=== PATIENT | male | born 1955 | race Caucasian/White ===

== ENCOUNTER 2020-06-02 14:13 | Inpatient (IN) ==
[2020-06-02] MEDS ORDERED: NS 1000 ML 1,000 ML ONE (15:43)
[2020-06-02] MEDS ORDERED: MORPHINE SULFATE INJ 2 MG INJ ONE (15:43)
[2020-06-02 16:31] LABS: BASOPHILS % (AUTO) 0.4 % (0.2-1.0); EOSINOPHILS % (AUTO) 0.3 % (0.9-2.9); HEMATOCRIT 32.9 % (42.0-54.0); HEMOGLOBIN 10.3 g/dL (13.5-18.0); LYMPHOCYTES # (AUTO) 1.2 X10^3/uL (1.3-2.9); LYMPHOCYTES % (AUTO) 26.1 % (21.0-51.0); MEAN CORPUSCULAR HEMOGLOBIN 23.9 pg (27.0-34.0); MEAN CORPUSCULAR HGB CONC 31.5 g/dL (33.0-35.0); MEAN PLATELET VOLUME 8.3 fL (7.4-11.0); MONOCYTES # (AUTO) 0.8 x10^3/uL (0.3-0.8); MONOCYTES % (AUTO) 16.3 % (0.0-13.0); NEUTROPHILS # (AUTO) 2.7 x10^3/uL (2.2-4.8); NEUTROPHILS % (AUTO) 56.9 % (42.0-75.0); PLATELET COUNT 184 X10^3/uL (150.0-450.0); RED BLOOD COUNT 4.32 X10^6/uL (4.7-6.0); RED CELL DISTRIBUTION WIDTH 20.9 % (11.6-16.5); WHITE BLOOD COUNT 4.8 X10^3/uL (3.6-10.0)
[2020-06-02 17:12] LABS: PLATELET MORPHOLOGY COMMENT NORMAL (NORMAL)
[2020-06-02 17:13] LABS: ANISOCYTOSIS 1+; HYPOCHROMASIA 1+
[2020-06-02 18:00] LABS: ALANINE AMINOTRANSFERASE 22 Units/L (12-78); ALBUMIN 3.7 g/dL (3.4-5.0); ALKALINE PHOSPHATASE 80 Units/L (46-116); ASPARTATE AMINO TRANSFERASE 24 Units/L (15-37); BLOOD UREA NITROGEN 14 mg/dL (7-18); CALCIUM 8.7 mg/dL (8.5-10.1); CARBON DIOXIDE 25.4 mmol/L (21-32); CHLORIDE 99 mmol/L (98-107); CREATININE 0.73 mg/dL (0.70-1.30); SODIUM 138 mmol/L (136-145); TOTAL PROTEIN 8.3 g/dL (6.4-8.2); eGFR NON BLACK RACES > 60 (>60)
[2020-06-02 18:18] VITALS: BMI 26.4
[2020-06-02] MEDS ORDERED: NORCO 7.5/325 MG TAB ONE (18:38)
[2020-06-02] MEDS: NORCO 7.5/325 MG TAB PO PRN (18:43)
--- NOTE | 2020-06-02 18:52 | DR.H&P ---
H&P - History & Physical for Day of: H&P Date: 06/02/20 - Chief Complaint Chief Complaint: Nausea/Vomiting/Diarrhea - History of Present Illness History of Present Illness: This is a 65-year-old white male who is a direct admit from [facility]. Pt complains of vomiting and diarrhea since Sunday. states patient had a fever of 103 last night. Temperature in office 100.8. States he is unable to hold down any of his medications because he vomits them up back up. Reports some abdominal discomfort. Reports increased back and leg pain. In office patient noted to have gone to the bathroom several times with bile smelling stools. Patient dry heaving and some vomiting in office. Pt does have history of multiple intra-abdominal surgeries as well as hospitalizations due to recurrent SBO secondary to adhesions. - Past Medical History Past Medical History: Anemia, Angina, Arthritis, Coronary Artery Disease, Diabetes, Dyslipidemia, GERD, Hypertension, PUD - Past Surgical History Surgical History: Abdominal Surgery, Angioplasty/Stents, Bowel Resection, CABG/Valve Surgery, Cholecystectomy, Other Additional Surgical History: Hiatal hernia repair - Family History Family Medical History: Coronary Artery Disease, Hypertension - Social History Does patient currently use any type of tobacco product: No Have you used tobacco products in the last 12 months: No Type of Tobacco Use: Cigarettes How many years tobacco product used: 3 Does any household member use tobacco: No Alcohol Use: None Drug Use: None, Prescription Drugs Prescription drug monitoring program results: PDMP reviewed and no concerns identified - Medications Home Medications: iodine Allergy (Verified 06/02/20 15:37) CONTINUE taking the following medications aspirin 81 mg PO DAILY 06/02/20 [History] atorvastatin 80 mg PO DAILY 06/02/20 [History] carvedilol 25 mg PO BID 06/02/20 [History] clopidogrel 75 mg PO DAILY 06/02/20 [History] docusate sodium [DOK] 100 mg PO BID 06/02/20 [History] famotidine 20 mg PO BID 06/02/20 [History] hydrocodone-acetaminophen 1 tab PO Q8H PRN 06/02/20 [History] linaclotide [Linzess] 290 mcg PO DAILY 06/02/20 [History] lisinopril 40 mg PO DAILY 06/02/20 [History] melatonin 5 mg PO HS 06/02/20 [History] mupirocin 2 % TOPICAL TID 06/02/20 [History] nifedipine 60 mg PO DAILY 06/02/20 [History] nitroglycerin 0.4 mg SUBLINGUAL Q5M PRN 06/02/20 [History] ondansetron 4 mg PO Q8H PRN 06/02/20 [History] pantoprazole 40 mg PO BID 06/02/20 [History] polyethylene glycol 3350 [Miralax] 17 g PO HS 06/02/20 [History] promethazine 25 mg PO Q6H PRN 06/02/20 [History] quetiapine 100 mg PO QHS 06/02/20 [History] ranolazine 500 mg PO BID 06/02/20 [History] ropinirole 1 mg PO HS 06/02/20 [History] spironolactone 25 mg PO DAILY 06/02/20 [History] sucralfate 1 g PO ACHS 06/02/20 [History] tamsulosin 0.4 mg PO HS 06/02/20 [History] tizanidine 4 - 8 mg PO Q8H PRN 06/02/20 [History] - Review of Systems Constitutional: Weakness Eyes: No Symptoms Reported ENT: No Symptoms Reported Respiratory: No Symptoms Reported Cardiovascular: Light Headedness Gastrointestinal: Nausea, Vomiting, Abdominal Pain, Diarrhea Genitourinary: No Symptoms Reported Musculoskeletal: Back Pain, Leg Pain Skin: No Symptoms Reported Neurological: Weakness - Physical Exam Vital Signs: Temperature 101.7 F Pulse Rate [Left Radial] 99 Respiratory Rate 18 Blood Pressure [Left Arm] 125/95 O2 Sat by Pulse Oximetry 98 Oriented: Normal Eyes: Normal Ear: Normal Nose: Normal Throat: Normal Respiratory: Clear Throughout Cardiovascular: Murmur : Normal Auscultation: Bowel Sounds: Decreased Palpation: Normal Tenderness: Epigastric Skin: Other (Dusky appearance) Musculoskeletal: Back:Lumbar (tender with palpation) Psychiatric: Normal Mood Description: Calm Affect: Flat Speech Pattern: Clear - Assessment/Plan (1) Vomiting and diarrhea Status: Acute Plan: Imaging, Labs, Anti-emtics. Observe for Bowel Obstruction (2) Abdominal pain Qualifiers: Abdominal location: generalized Qualified Code(s): R10.84 - Generalized abdominal pain Narrative Support Text: History of numerous bowel obstructions and surgeries Status: Acute Plan: Imaging, labs (3) Fever Status: Acute - Allergies Allergies/Adverse Reactions: Allergies Allergy/AdvReac Type Severity Reaction Status Date / Time iodine Allergy Verified 06/02/20 15:37
--- NOTE | 2020-06-02 20:22 | CT ---
HISTORYPT C/O N/VSTUDYABDOMEN/PELVIS W/O CONCOMPARISONNoneTECHNIQUEMultiple axial images of the abdomen and pelvis were obtained from the lung bases to the pubic symphysis without the administration of IV contrast. Dose reduction techniques including Automated Exposure Control (AEC) and adjustment of mA and kV were utilized.FINDINGSThere are hazy ground-glass opacities scattered along the lung bases which is more prominent on the right. There is a small hiatal hernia. The liver and spleen are normal size and density. The gallbladder has been removed with clips in the gallbladder fossa. There are surgical clips scattered along the epigastric region and left upper quadrant. The bile ducts and pancreas are normal. The adrenals are normal. There is perirenal stranding around both kidneys with no hydronephrosis, renal stone, or mass. There is an IVC filter in place with the tip below the renal veins. The ureters are normal caliber. The bladder is unremarkable. The prostate gland is mildly enlarged. There are mesenteric calcifications along the left upper quadrant. There are multiple loops of mild to moderately dilated large and small bowel throughout abdomen with moderate air-fluid levels throughout seen down to the rectum. There is no obvious wall thickening. The appendix is not well visualized with no pericecal inflammation. The bones are intact.IMPRESSIONProbable diffuse moderate ileus or less likely a distal colonic obstruction. Recommend clinical follow-up.Extensive postop changes along the upper abdomen and mesentery calcifications along the left upper quadrant.Status post cholecystectomy and IVC filter in good position.Perirenal scarring around both kidneys with no hydronephrosis or urinary obstruction.Hazy ground-glass opacities along the lung bases which could represent early infiltrates from pneumonia. Recommend correlating with chest x-rays.Small hiatal herniaElectronically signed by: ANDRIA RUIZ (Jun 02, 2020 20:21:43)
[2020-06-02] MEDS ORDERED: ZOFRAN INJ 4 MG VIAL ONE (21:10)
--- NOTE | 2020-06-02 21:13 | DR.UPDATE ---
H&P Update History and Physical Update: History and Physical reviewed and patient examined. Changes noted: NO Yes with the following:will place central line for iv access H&P Reviewed: Yes Patient was examined?: Yes Procedures (ALL) - Central Line Placement PCM.CLCO: written consent Time out performed: Yes Patient placed pm monitor/pulse ox: Yes prep: mask, gown, gloves, other Centrial line prep: chlorhexidine scrub, sterile drapes applied Local anesthsia used: lidocane 1% Ultrasound used for placement: Yes (right ij id'd) Central line lumen ininserted: triple Post procedure: sutured in place, good blood return, all ports aspirated, flushed,capped, sterile dressing applied Post procedure xray: tip oc catheter in good position, no pneumothorax seen Patient tolerated procedure: Yes Complications: none
--- NOTE | 2020-06-02 21:14 | RAD ---
HISTORYCENTRAL LINE PLACEMENTSTUDYCHEST, 1 VIEWCOMPARISONNoneFINDINGSThe heart is borderline enlarged. The pulmonary vessels are slightly ill-defined centrally. Lungs are hyperinflated and emphysematous. There is a right IJ catheter in place with the tip in the distal superior vena cava. No effusion or pneumothorax is seen.IMPRESSIONStatus post right IJ catheter placement in good position.Minimal central pulmonary congestion or pulmonary artery hypertension.Chronic obstructive lung changes with no acute pulmonary abnormality.Electronically signed by: ANDRIA RUIZ (Jun 02, 2020 21:12:34)
[2020-06-02] MEDS: MORPHINE SULFATE INJ 2 MG INJ IVP PRN (21:25)
[2020-06-02] MEDS: NS 1000 ML 1,000 ML IV SCH ×2 (21:25→22:37)
[2020-06-02] MEDS: ZOFRAN INJ 4 MG VIAL IVP PRN (21:26)
[2020-06-02] MEDS: DILAUDID INJ IVP PRN (23:43)
[2020-06-03] MEDS: MORPHINE SULFATE INJ 2 MG INJ IVP PRN (03:29)
[2020-06-03] MEDS: ZOFRAN INJ 4 MG VIAL IVP PRN ×2 (05:56→19:30)
[2020-06-03] MEDS: DILAUDID INJ IVP PRN ×2 (06:05→17:23)
[2020-06-03] MEDS: NS 1000 ML 1,000 ML IV SCH ×2 (06:15→21:09)
[2020-06-03] MEDS ORDERED: DILAUDID INJ IVP STA (09:02)
[2020-06-03] MEDS: OFIRMEV IV 1000 MG VIAL 1,000 MG/100 ML VIAL IV PRN ×2 (09:15→21:07)
[2020-06-03 09:26] LABS: BASOPHILS % (AUTO) 0.4 % (0.2-1.0); HEMOGLOBIN 10.1 g/dL (13.5-18.0); LYMPHOCYTES # (AUTO) 1.2 X10^3/uL (1.3-2.9); LYMPHOCYTES % (AUTO) 25.4 % (21.0-51.0); MEAN CORPUSCULAR HEMOGLOBIN 24.1 pg (27.0-34.0); MEAN CORPUSCULAR HGB CONC 31.7 g/dL (33.0-35.0); MEAN CORPUSCULAR VOLUME 76.1 fL (80.0-100.0); MEAN PLATELET VOLUME 8.2 fL (7.4-11.0); MONOCYTES # (AUTO) 0.6 x10^3/uL (0.3-0.8); MONOCYTES % (AUTO) 12.5 % (0.0-13.0); NEUTROPHILS # (AUTO) 2.9 x10^3/uL (2.2-4.8); NEUTROPHILS % (AUTO) 61.7 % (42.0-75.0); PLATELET COUNT 173 X10^3/uL (150.0-450.0); RED BLOOD COUNT 4.21 X10^6/uL (4.7-6.0); RED CELL DISTRIBUTION WIDTH 21.1 % (11.6-16.5); WHITE BLOOD COUNT 4.6 X10^3/uL (3.6-10.0)
[2020-06-03 09:40] LABS: LACTIC ACID 0.9 mmol/L (0.4-2.0)
[2020-06-03 09:45] LABS: ALANINE AMINOTRANSFERASE 18 Units/L (12-78); ALBUMIN 3.3 g/dL (3.4-5.0); ALKALINE PHOSPHATASE 71 Units/L (46-116); ASPARTATE AMINO TRANSFERASE 25 Units/L (15-37); BLOOD UREA NITROGEN 11 mg/dL (7-18); CALCIUM 8.5 mg/dL (8.5-10.1); CARBON DIOXIDE 22.7 mmol/L (21-32); CHLORIDE 103 mmol/L (98-107); COR CA(FOR HYPOALB) 9.1 mg/dL (8.5-10.1); CREATININE 0.68 mg/dL (0.70-1.30); SODIUM 138 mmol/L (136-145); TOTAL PROTEIN 7.3 g/dL (6.4-8.2); eGFR NON BLACK RACES > 60 (>60)
[2020-06-03 09:49] LABS: PLATELET MORPHOLOGY COMMENT NORMAL (NORMAL)
[2020-06-03 09:50] LABS: ANISOCYTOSIS 1+
--- NOTE | 2020-06-03 10:04 | RAD ---
HISTORYABD DISTENTION, N/V HIATAL HERNIA, BOWEL OBSTRUCTIONSTUDYKUBCOMPARISONCT of the abdomen and pelvis done June 02, 2020FINDINGSThere is mild dilatation of multiple loops of small with patchy colonic stool noted. No gas is seen within the rectum.IMPRESSIONProbable ileus given colonic stool versus early obstruction. Continued radiographic follow-up is needed.Electronically signed by: CORKY ANDERSEN (Jun 03, 2020 10:02:12)
[2020-06-03] MEDS: ZOSYN VIAL 3.375 GRAMS 3.375 G in NS 100 ML IV + SPIKE MINIBAG* 100 ML IV SCH ×2 (10:37→21:10)
[2020-06-03 11:06] LABS: BILIRUBIN,URINE NEGATIVE (NEGATIVE); BLOOD/HEMOGLOBIN,URINE NEGATIVE (NEGATIVE); GLUCOSE, URINE NEGATIVE (NEGATIVE); KETONES,URINE 2+ (NEGATIVE); LEUKOCYTE ESTERASE ,URINE NEGATIVE (NEGATIVE); NITRITES,URINE NEGATIVE (NEGATIVE); PROTEIN,URINE 1+ (NEGATIVE); UROBILINOGEN,URINE NORMAL (NORMAL)
[2020-06-03 11:31] LABS: APPEARANCE,URINE CLEAR (CLEAR); COLOR,URINE YELLOW (YELLOW)
[2020-06-03 11:32] LABS: BACTERIA,URINE NEGATIVE /HPF (NEGATIVE); RBC,URINE NONE SEEN /HPF (0-3); SQUAMOUS EPITHELIAL CELL,UR RARE /HPF (NEGATIVE)
--- NOTE | 2020-06-03 11:57 | RAD ---
HISTORYSOBSTUDYCHEST, 1 MYLULTVNRISOVO38/21/2020FINDINGSThe heart is normal. The pulmonary vessels are normal. The lungs are mildly hyperinflated and emphysematous. There are postop changes along the mediastinum and sternum. There is a right IJ catheter in place which is unchanged.IMPRESSIONStable chronic changes with no acute abnormality seen.Electronically signed by: ANDRIA RUIZ (Jun 03, 2020 11:56:09)
[2020-06-03] MEDS: LOVENOX INJ 40 MG SYR SC SCH (12:00)
[2020-06-03] MEDS: ZITHROMAX INJ 500 MG VIAL 500 MG in NS 250 ML IV 250 ML IV SCH (12:00)
[2020-06-03 12:20] LABS: ABG BASE EXCESS -3.2 mmol/L (-2.0-2.0); ABG HCO3 21.2 mmol/L (22-26)
[2020-06-03] MEDS: DUONEB 0.5 MG/3 MG (3 mL) NEB SCH ×3 (12:20→21:07)
[2020-06-03 12:21] LABS: ABG ALLEN TEST POS
[2020-06-03] MEDS: ZESTRIL TAB 40 MG PO SCH (15:00)
[2020-06-03] MEDS ORDERED: APRESOLINE INJ 20 MG VIAL IVP ONE (20:40)
[2020-06-03] MEDS ORDERED: APRESOLINE INJ 20 MG VIAL ONE (20:46)
[2020-06-03] MEDS: RANEXA PO SCH (21:10)
[2020-06-03] MEDS: FLOMAX PO SCH (21:10)
[2020-06-03] MEDS: COREG TAB 25 MG PO SCH (21:10)
[2020-06-03] MEDS: PHENERGAN INJ 25 MG IM PRN (23:24)
[2020-06-04] MEDS: DUONEB 0.5 MG/3 MG (3 mL) NEB SCH ×6 (01:20→21:55)
[2020-06-04] MEDS: DILAUDID INJ IVP PRN ×5 (01:53→21:43)
[2020-06-04] MEDS ORDERED: ZOSYN VIAL 3.375 GRAMS IV ONE (05:50)
[2020-06-04] MEDS ORDERED: NS 100 ML IV + SPIKE MINIBAG* 100 ML IV ONE (05:57)
[2020-06-04] MEDS: ZOSYN VIAL 3.375 GRAMS 3.375 G in NS 100 ML IV + SPIKE MINIBAG* 100 ML IV SCH ×3 (06:00→21:23)
[2020-06-04 06:01] LABS: ALANINE AMINOTRANSFERASE 17 Units/L (12-78); ALBUMIN 2.9 g/dL (3.4-5.0); ALKALINE PHOSPHATASE 63 Units/L (46-116); ASPARTATE AMINO TRANSFERASE 19 Units/L (15-37); BLOOD UREA NITROGEN 7 mg/dL (7-18); CALCIUM 8.2 mg/dL (8.5-10.1); CARBON DIOXIDE 23.1 mmol/L (21-32); CHLORIDE 104 mmol/L (98-107); COR CA(FOR HYPOALB) 9.1 mg/dL (8.5-10.1); CREATININE 0.68 mg/dL (0.70-1.30); SODIUM 140 mmol/L (136-145); TOTAL PROTEIN 6.8 g/dL (6.4-8.2); eGFR NON BLACK RACES > 60 (>60)
[2020-06-04 06:04] LABS: BASOPHILS % (AUTO) 0.2 % (0.2-1.0); HEMATOCRIT 31.1 % (42.0-54.0); LYMPHOCYTES # (AUTO) 1.2 X10^3/uL (1.3-2.9); LYMPHOCYTES % (AUTO) 32.5 % (21.0-51.0); MEAN CORPUSCULAR HEMOGLOBIN 24.1 pg (27.0-34.0); MEAN CORPUSCULAR VOLUME 75.3 fL (80.0-100.0); MEAN PLATELET VOLUME 7.9 fL (7.4-11.0); MONOCYTES # (AUTO) 0.3 x10^3/uL (0.3-0.8); MONOCYTES % (AUTO) 8.3 % (0.0-13.0); NEUTROPHILS # (AUTO) 2.2 x10^3/uL (2.2-4.8); PLATELET COUNT 164 X10^3/uL (150.0-450.0); RED BLOOD COUNT 4.13 X10^6/uL (4.7-6.0); RED CELL DISTRIBUTION WIDTH 21.1 % (11.6-16.5); WHITE BLOOD COUNT 3.8 X10^3/uL (3.6-10.0)
[2020-06-04 06:41] LABS: ANISOCYTOSIS 1+; HYPOCHROMASIA SLIGHT; PLATELET MORPHOLOGY COMMENT NORMAL (NORMAL)
[2020-06-04] MEDS: LIPITOR TAB 40 MG PO SCH ×2 (08:39→08:52)
[2020-06-04] MEDS: ZESTRIL TAB 40 MG PO SCH ×3 (08:40→12:03)
[2020-06-04] MEDS: LOVENOX INJ 40 MG SYR SC SCH (08:40)
[2020-06-04] MEDS: COREG TAB 25 MG PO SCH ×4 (08:41→21:29)
[2020-06-04] MEDS: RANEXA PO SCH ×2 (08:52→21:29)
[2020-06-04] MEDS: ZITHROMAX INJ 500 MG VIAL 500 MG in NS 250 ML IV 250 ML IV SCH (08:53)
[2020-06-04] MEDS ORDERED: REMDESIVIR 200 MG in NS 250 ML IV 250 ML IV SCH (11:00)
[2020-06-04] MEDS: OFIRMEV IV 1000 MG VIAL 1,000 MG/100 ML VIAL IV PRN (12:00)
[2020-06-04] MEDS ORDERED: TORADOL 15 MG VIAL IM ONE (13:03)
[2020-06-04] MEDS ORDERED: TORADOL 15 MG VIAL ONE (13:05)
[2020-06-04] MEDS ORDERED: REMDESIVIR IV ONE (14:29)
[2020-06-04] MEDS ORDERED: NS 250 ML IV 250 ML IV ONE (14:32)
--- NOTE | 2020-06-04 14:56 | RAD ---
HISTORYCOVID PT WITH ABD DISTENTIONSTUDYKUBCOMPARISONNoneTECHNIQUETwo images supine KUBFINDINGSLung bases demonstrate pulmonar y opacities of covid 19. Cardiomegaly. Diffusely gas-filled dilated bowel. IVC filter noted. No free air identified. Surgical clips in the left upper and right upper quadrants. Multiple scattered abdomi nal calcifications are nonspecific. No pneumatosis or portal venous gas.IMPRESSIONDilated gas-filled bowel suspicious for ileus.Electronically signed by: Rodrigo Acuña (Jun 04, 2020 14:55:10)
[2020-06-04] MEDS: NS 1000 ML 1,000 ML IV SCH ×3 (15:00→22:48)
[2020-06-04] MEDS: FLOMAX PO SCH (21:29)
[2020-06-05] MEDS: DUONEB 0.5 MG/3 MG (3 mL) NEB SCH ×6 (01:30→21:30)
[2020-06-05] MEDS: DILAUDID INJ IVP PRN ×3 (01:39→09:39)
[2020-06-05] MEDS: OFIRMEV IV 1000 MG VIAL 1,000 MG/100 ML VIAL IV PRN ×2 (01:45→09:30)
[2020-06-05 05:24] LABS: BASOPHILS % (AUTO) 0.2 % (0.2-1.0); HEMATOCRIT 27.2 % (42.0-54.0); HEMOGLOBIN 8.7 g/dL (13.5-18.0); LYMPHOCYTES # (AUTO) 0.7 X10^3/uL (1.3-2.9); LYMPHOCYTES % (AUTO) 25.5 % (21.0-51.0); MEAN CORPUSCULAR HEMOGLOBIN 24.3 pg (27.0-34.0); MEAN CORPUSCULAR VOLUME 76.1 fL (80.0-100.0); MEAN PLATELET VOLUME 8.6 fL (7.4-11.0); MONOCYTES # (AUTO) 0.2 x10^3/uL (0.3-0.8); MONOCYTES % (AUTO) 8.2 % (0.0-13.0); NEUTROPHILS # (AUTO) 1.8 x10^3/uL (2.2-4.8); NEUTROPHILS % (AUTO) 66.1 % (42.0-75.0); PLATELET COUNT 145 X10^3/uL (150.0-450.0); RED BLOOD COUNT 3.57 X10^6/uL (4.7-6.0); RED CELL DISTRIBUTION WIDTH 20.6 % (11.6-16.5); WHITE BLOOD COUNT 2.7 X10^3/uL (3.6-10.0)
[2020-06-05 05:33] LABS: ANISOCYTOSIS 1+; HYPOCHROMASIA SLIGHT; OVALOCYTES PRESENT; PLATELET MORPHOLOGY COMMENT NORMAL (NORMAL)
[2020-06-05 05:38] LABS: ALANINE AMINOTRANSFERASE 14 Units/L (12-78); ALBUMIN 2.6 g/dL (3.4-5.0); ALKALINE PHOSPHATASE 57 Units/L (46-116); ASPARTATE AMINO TRANSFERASE 21 Units/L (15-37); BLOOD UREA NITROGEN 13 mg/dL (7-18); CALCIUM 7.9 mg/dL (8.5-10.1); CARBON DIOXIDE 22.3 mmol/L (21-32); CHLORIDE 106 mmol/L (98-107); CREATININE 0.72 mg/dL (0.70-1.30); SODIUM 141 mmol/L (136-145); TOTAL PROTEIN 6.6 g/dL (6.4-8.2); eGFR NON BLACK RACES > 60 (>60)
[2020-06-05] MEDS: NS 1000 ML 1,000 ML IV SCH ×2 (05:59→20:54)
[2020-06-05] MEDS: ZOSYN VIAL 3.375 GRAMS 3.375 G in NS 100 ML IV + SPIKE MINIBAG* 100 ML IV SCH ×3 (06:00→21:10)
--- NOTE | 2020-06-05 06:15 | RAD ---
HISTORYCough,covidSTUDYPortable AP [id number]/22/2020FINDINGSStable heart size with right IJ line and sternal wires. There is no change in the grossly clear left lung. There is suggestion of developing interstitial infiltrate in the right lung. No segmental or lobar consolidation or pleural fluid seen.IMPRESSIONSuspect appearance for developing interstitial infiltrate/pneumonia in the right lower lung. Continued follow-up suggested.Electronically signed by: MAXX CHAVEZ (Jun 05, 2020 06:13:57)
[2020-06-05] MEDS: REMDESIVIR 100 MG in NS 250 ML IV 250 ML IV SCH (09:17)
[2020-06-05] MEDS: ZITHROMAX INJ 500 MG VIAL 500 MG in NS 250 ML IV 250 ML IV SCH (09:17)
[2020-06-05] MEDS: LOVENOX INJ 40 MG SYR SC SCH (09:18)
[2020-06-05] MEDS: LIPITOR TAB 40 MG PO SCH ×2 (09:19→21:15)
[2020-06-05] MEDS: ZESTRIL TAB 40 MG PO SCH (09:19)
[2020-06-05] MEDS: COREG TAB 25 MG PO SCH ×2 (09:19→20:54)
[2020-06-05] MEDS: RANEXA PO SCH ×2 (09:31→21:15)
--- NOTE | 2020-06-05 10:36 | DR.PROGNOT ---
Hospital Progress Notes - Progress Note for Day of: Progress Note Date: 06/05/20 - Chief Complaint Chief Complaint: c/o back pain . having episodes of dry heaves and coughs . only mild abdominal pain . ( had small BM and passing flatus ). abdominal xray showe ileus pattern . chest Xray possible pneumonia RLL - Past Medical Family Social History Past Med/Fam/Surg Hx: No changes since H&P Allergies: Allergies iodine Allergy (Verified 06/02/20 15:37) - Review Of Systems ROS: No change since H&P - Vital Signs Vital Signs: Temperature 100.4 F Pulse Rate [Left Radial] 81 Pulse Rate 85 Respiratory Rate 30 Blood Pressure [Left Arm] 177/83 Blood Pressure 124/58 O2 Sat by Pulse Oximetry 91 - Physical Exam Oriented: Normal, Other (anxious and restless ) Eyes: Normal Ear: Normal Nose: Normal Throat: Normal Cardiovascular: Murmur : Normal GI:Auscultation: Decreased GI:Palpation: Normal GI: Tenderness: Epigastric (mild diffuse tenderness , soft abdomen.) Skin: Other (Dusky appearance) Musculoskeletal: Back:Lumbar (tender with palpation) Psychiatric: Normal Mood Description: Calm Affect: Flat Speech Pattern: Clear, Appropriate - Laboratory and Diagnostics Result Diagrams: 06/05/20 04:28 06/05/20 04:28 Labs: 06/03/20 10:30 Urine,Clean Catch Urine Culture - Final 06/03/20 09:07 Blood Blood Culture - Preliminary 06/03/20 08:50 Blood Blood Culture - Preliminary 06/02/20 17:10 Blood Blood Culture - Preliminary 06/02/20 16:09 Blood Blood Culture - Preliminary Laboratory WBC 2.7 X10^3/uL (3.6-10.0) L 06/05/20 04:28 RBC 3.57 X10^6/uL (4.7-6.0) L 06/05/20 04:28 Hgb 8.7 g/dL (13.5-18.0) L 06/05/20 04:28 Hct 27.2 % (42.0-54.0) L 06/05/20 04:28 MCV 76.1 fL (80.0-100.0) L 06/05/20 04:28 MCH 24.3 pg (27.0-34.0) L 06/05/20 04:28 MCHC 32.0 g/dL (33.0-35.0) L 06/05/20 04: RDW 20.6 % (11.6-16.5) H 06/05/20 04: Plt Count 145 X10^3/uL (150.0-450.0) L 06/05/20 04:28 Plt Count Comment Adequate (ADEQUATE) 06/05/20 04: MPV 8.6 fL (7.4-11.0) 06/05/20 04: Neut % (Auto) 66.1 % (42.0-75.0) 06/05/20 04: Lymph % (Auto) 25.5 % (21.0-51.0) 06/05/20 04: [place] % (Auto) 8.2 % (0.0-13.0) 06/05/20 04: Eos % (Auto) 0.0 % (0.9-2.9) L 06/05/20 04: Baso % (Auto) 0.2 % (0.2-1.0) 06/05/20 04: Neut # (Auto) 1.8 x10^3/uL (2.2-4.8) L 06/05/20 04:28 Lymph # (Auto) 0.7 X10^3/uL (1.3-2.9) L 06/05/20 04:28 [place] # (Auto) 0.2 x10^3/uL (0.3-0.8) L 06/05/20 04:28 Eos # (Auto) 0.0 x10^3/uL (0.0-0.2) 06/05/20 04:28 Baso # (Auto) 0.0 X10^3/uL (0.0-0.1) 06/05/20 04:28 Absolute Nucleated RBC 0.1 /100WBC 06/05/20 04:28 Plt Morphology Comment Normal (NORMAL) 06/05/20 04:28 RBC Morphology Abnormal (NORMAL) 06/05/20 04:28 Hypochromasia Slight A 06/05/20 04:28 Anisocytosis 1+ A 06/05/20 04:28 Ovalocytes Present 06/05/20 04:28 ESR 38 MM/HOUR (0-15) H 06/03/20 08:50 Sample Site Rr 06/03/20 12:15 ABG pH 7.390 (7.35-7.45) 06/03/20 12:15 ABG pCO2 35.0 mmHg (35.0-45.0) 06/03/20 12:15 ABG pO2 81.0 mmHg (80.0-100.0) 06/03/20 12:15 ABG HCO3 21.2 mmol/L (22-26) L 06/03/20 12:15 ABG O2 Saturation 96.0 % (90-100) 06/03/20 12:15 ABG Base Excess -3.2 mmol/L (-2.0-2.0) L 06/03/20 12:15 Jason Test Pos 06/03/20 12:15 A-a Gradient 25.0 mmHg 06/03/20 12:15 FiO2 21.0 06/03/20 12:15 Blood Gas Comments Xiomara well gmb 06/03/20 12:15 Sodium 141 mmol/L (136-145) 06/05/20 04:28 Corrected Sodium TNP 06/05/20 04:28 Potassium 3.6 mmol/L (3.5-5.1) 06/05/20 04:28 Chloride 106 mmol/L (98-107) 06/05/20 04:28 Carbon Dioxide 22.3 mmol/L (21-32) 06/05/20 04:28 BUN 13 mg/dL (7-18) 06/05/20 04:28 Creatinine 0.72 mg/dL (0.70-1.30) 06/05/20 04:28 Est GFR (MDRD) Af Amer > 60 (>60) 06/05/20 04:28 Est GFR (MDRD) Non-Af > 60 (>60) 06/05/20 04:28 Glucose 79 mg/dL (65-99) 06/05/20 04:28 Lactic Acid 0.9 mmol/L (0.4-2.0) 06/03/20 08:50 Calcium 7.9 mg/dL (8.5-10.1) L 06/05/20 04:28 Corrected Calcium 9.0 mg/dL (8.5-10.1) 06/05/20 04:28 Ferritin 80 ng/mL (26-388) 06/03/20 08:50 Total Bilirubin 0.40 mg/dL (0.2-1.0) 06/05/20 04:28 AST 21 Units/L (15-37) 06/05/20 04:28 ALT 14 Units/L (12-78) 06/05/20 04:28 Alkaline Phosphatase 57 Units/L (46-116) 06/05/20 04:28 C-Reactive Protein 76.30 mg/L (0-3.0) H 06/04/20 04:55 Total Protein 6.6 g/dL (6.4-8.2) 06/05/20 04:28 Albumin 2.6 g/dL (3.4-5.0) L 06/05/20 04:28 Globulin 4.0 g/dL (2.5-4.5) 06/05/20 04:28 Albumin/Globulin Ratio 0.7 Ratio (1.1-2.1) L 06/05/20 04:28 Specimen Type Clean catch urine 06/03/20 10:30 Urine Color Yellow (YELLOW) 06/03/20 10:30 Urine Appearance Clear (CLEAR) 06/03/20 10:30 Urine pH 5.0 (5.0 - 8.0) 06/03/20 10:30 Ur Specific [place] 1.025 (1.000-1.030) 06/03/20 10:30 Urine Protein 1+ (NEGATIVE) 06/03/20 10:30 Urine Glucose (UA) Negative (NEGATIVE) 06/03/20 10:30 Urine Ketones 2+ (NEGATIVE) 06/03/20 10:30 Urine Occult Blood Negative (NEGATIVE) 06/03/20 10:30 Urine Nitrite Negative (NEGATIVE) 06/03/20 10:30 Urine Bilirubin Negative (NEGATIVE) 06/03/20 10:30 Urine Urobilinogen Normal (NORMAL) 06/03/20 10:30 Ur Leukocyte Esterase Negative (NEGATIVE) 06/03/20 10:30 Urine RBC None seen /HPF (0-3) 06/03/20 10:30 Urine WBC None seen /HPF (0-5) 06/03/20 10:30 Ur Squamous Epith Cells Rare /HPF (NEGATIVE) 06/03/20 10:30 Urine Bacteria Negative /HPF (NEGATIVE) 06/03/20 10:30 Ur Culture Indicated? No/not indicated 06/03/20 10:30 SARS-CoV-2 (PCR) Positive (NEGATIVE) A 06/03/20 09:20 - Assessment and Plan 1: Covid 19 pneumonia . improving ileus ,. back pain . same plan and advance diet . - Problem Patient Problems: Patient Problems Vomiting and diarrhea (Acute) R11.10, R19.7 Abdominal pain (Acute) R10.9 Fever (Acute) R50.9
[2020-06-05] MEDS ORDERED: DILAUDID INJ IVP PRN (10:55)
[2020-06-05] MEDS: ATIVAN INJ 2 MG VIAL IVP PRN ×2 (11:00→21:10)
[2020-06-05] MEDS ORDERED: ATIVAN INJ 2 MG VIAL IVP PRN (11:00)
[2020-06-05] MEDS: FLOMAX PO SCH (21:12)
[2020-06-06] MEDS: DUONEB 0.5 MG/3 MG (3 mL) NEB SCH ×6 (01:19→20:40)
[2020-06-06] MEDS: NS 1000 ML 1,000 ML IV SCH ×2 (03:00→18:20)
[2020-06-06] MEDS: ATIVAN INJ 2 MG VIAL IVP PRN ×2 (04:49→13:50)
[2020-06-06] MEDS: ZOSYN VIAL 3.375 GRAMS 3.375 G in NS 100 ML IV + SPIKE MINIBAG* 100 ML IV SCH ×3 (05:00→21:40)
[2020-06-06 05:22] LABS: BASOPHILS % (AUTO) 0.1 % (0.2-1.0); EOSINOPHILS % (AUTO) 0.1 % (0.9-2.9); HEMATOCRIT 29.8 % (42.0-54.0); HEMOGLOBIN 9.4 g/dL (13.5-18.0); LYMPHOCYTES # (AUTO) 1.2 X10^3/uL (1.3-2.9); LYMPHOCYTES % (AUTO) 32.4 % (21.0-51.0); MEAN CORPUSCULAR HGB CONC 31.5 g/dL (33.0-35.0); MEAN PLATELET VOLUME 8.5 fL (7.4-11.0); MONOCYTES # (AUTO) 0.3 x10^3/uL (0.3-0.8); MONOCYTES % (AUTO) 8.6 % (0.0-13.0); NEUTROPHILS # (AUTO) 2.2 x10^3/uL (2.2-4.8); NEUTROPHILS % (AUTO) 58.8 % (42.0-75.0); PLATELET COUNT 177 X10^3/uL (150.0-450.0); RED BLOOD COUNT 3.92 X10^6/uL (4.7-6.0); RED CELL DISTRIBUTION WIDTH 20.9 % (11.6-16.5); WHITE BLOOD COUNT 3.7 X10^3/uL (3.6-10.0)
[2020-06-06 05:35] LABS: ANISOCYTOSIS 1+; HYPOCHROMASIA SLIGHT; PLATELET MORPHOLOGY COMMENT NORMAL (NORMAL)
[2020-06-06 05:36] LABS: OVALOCYTES PRESENT
[2020-06-06 05:38] LABS: ALANINE AMINOTRANSFERASE 15 Units/L (12-78); ALBUMIN 2.6 g/dL (3.4-5.0); ALKALINE PHOSPHATASE 59 Units/L (46-116); ASPARTATE AMINO TRANSFERASE 30 Units/L (15-37); BLOOD UREA NITROGEN 15 mg/dL (7-18); CALCIUM 8.3 mg/dL (8.5-10.1); CARBON DIOXIDE 23.1 mmol/L (21-32); CHLORIDE 108 mmol/L (98-107); COR CA(FOR HYPOALB) 9.4 mg/dL (8.5-10.1); CREATININE 0.75 mg/dL (0.70-1.30); SODIUM 143 mmol/L (136-145); eGFR NON BLACK RACES > 60 (>60)
--- NOTE | 2020-06-06 07:15 | RAD ---
HISTORYCoughSTUDYAP [id number]/24/2020FINDINGSCardiomegaly with sternal wires. No change in position of right jugu lar line. The left lung is hyperexpanded and grossly clear. There is increasing confluent airspace de nsity in the right lower lung. No pneumothorax or associated pleural fluid is seen.IMPRESSIONStable c ardiac enlargement. Increasing infiltrate/pneumonia right upper and lower lobes.Electronically signed by: MAXX CHAVEZ (Jun 06, 2020 07:13:19)
[2020-06-06] MEDS: ZESTRIL TAB 40 MG PO SCH (08:29)
[2020-06-06] MEDS: LOVENOX INJ 40 MG SYR SC SCH (08:29)
[2020-06-06] MEDS: RANEXA PO SCH ×2 (08:30→21:40)
[2020-06-06] MEDS: REMDESIVIR 100 MG in NS 250 ML IV 250 ML IV SCH (08:30)
[2020-06-06] MEDS: ZITHROMAX INJ 500 MG VIAL 500 MG in NS 250 ML IV 250 ML IV SCH (08:31)
[2020-06-06] MEDS: COREG TAB 25 MG PO SCH ×2 (08:43→21:40)
[2020-06-06] MEDS: PHENERGAN INJ 25 MG IM PRN (10:05)
--- NOTE | 2020-06-06 14:01 | CT ---
HISTORYS/P FALL. PAIN TO RIGHT PERIORBITALSTUDYBRAIN W/O CONCOMPARISONNone.TECHNIQUEMultiple axial images of the head were performed from the skullbase to the vertex using standard departmental protocol. Sagittal and coronal reformatted images were performed. Dose reduction techniques including Automated Exposure Control (AEC) and adjustment of mA and kV were utilized.FINDINGSMotion limited study. The lateral ventricles and basilar cisterns appear patent. No parenchymal mass or hematoma. No extra-axial collection. Mchugh-white differentiation appears acutely preserved. Mild low-attenuation change in the supratentorial subcortical and deep white matter. Small left maxillary sinus retention cyst.IMPRESSIONNo acute intracranial abnormality. Mild chronic small vessel disease. Motion limited study.Electronically signed by: Rodrigo Acuña (Jun 06, 2020 14:00:16)
--- NOTE | 2020-06-06 14:03 | CT ---
HISTORYS/P FALL. PAIN TO RIGHT PERIORBITALSTUDYFACIAL W/O CONCOMPARISONNone.TECHNIQUEMultiple axial images of the facial structures were obtained from the mandible to superior portions of the orbits. Sagital and Coronal reformats were created. Dose reduction techniques including Automated Exposure Control (AEC) and adjustment of mA and kV were utilized.FINDINGSFacial bones: No acute facial bone fracture.Paranasal sinuses:Small left maxillary sinus retention cyst. Mild mucosal thickening in the ethmoid air cells.Globes:Intact. No retrobulbar swelling or hematoma.Soft tissues:Small right periorbital contusion.Motion limited study.IMPRESSIONNo acute facial bone fracture.Electronically signed by: Rodrigo Acuña (Jun 06, 2020 14:02:02)
--- NOTE | 2020-06-06 15:09 | RAD ---
HISTORYCENTRAL LINE PLACEMENTSTUDYCHEST, 1 VIEWCOMPARISONSame day chest radiographTECHNIQUEAP view of the chestFINDINGSRight IJ central line in good position. Post median sternotomy and CABG. Cardiac silhouette is stably enlarged. No significant change in bilateral lung airspace disease. No pleural effusion or pneumothorax.IMPRESSIONCentral line in good position.Electronically signed by: Rodrigo Acuña (Jun 06, 2020 15:07:53)
--- NOTE | 2020-06-06 15:10 | DR.UPDATE ---
H&P Update History and Physical Update: History and Physical reviewed and patient examined. Changes noted: NO Yes with the following:will replace central line secondary to patient pulling original line out. H&P Reviewed: Yes Patient was examined?: Yes Procedures (ALL) - Central Line Placement PCM.CLCO: written consent Time out performed: Yes Patient placed pm monitor/pulse ox: Yes MD prep: mask, gown, gloves, other Centrial line prep: chlorhexidine scrub, sterile drapes applied Local anesthsia used: lidocane 1% Ultrasound used for placement: Yes (right IJ easily id'd. direct u/s vis of R IJ cannulation.) Central line lumen ininserted: triple Post procedure: sutured in place, good blood return, all ports aspirated, flushed,capped, sterile dressing applied Post procedure xray: tip oc catheter in good position, no pneumothorax seen Patient tolerated procedure: Yes Complications: none
[2020-06-06] MEDS: DILAUDID INJ IVP PRN ×2 (15:16→23:30)
[2020-06-06] MEDS ORDERED: HALDOL INJ ONE (20:13)
[2020-06-06] MEDS ORDERED: RESTORIL CAP 15 MG PO ONE (20:17)
[2020-06-06] MEDS ORDERED: HALDOL INJ IVP ONE (20:22)
[2020-06-06] MEDS ORDERED: HALDOL INJ IM PRN (20:23)
--- NOTE | 2020-06-06 21:33 | RAD ---
HISTORYFALL, RIGHT SIDE PAIN HX: HTN, PNEUMONIA, DM SX: ABD, STENTS, BOWEL RESECTION, CABG, GBSTUDYRIB SERIESCOMPARISONChest x-ray dated same day at 2:50 p.m.FINDINGSThe trachea is midline. The cardiac silhouette is stably enlarged without overt signs of failure. Stable appearance of a right IJ central venous catheter. Postsurgical changes status post CABG. Patchy airspace disease appears unchanged given technique. No obvious pleural effusion. The bony thorax is unremarkable.No acute cortical disruption or angulation of the bony [right] hemithorax can be identified. No underlying pneumothorax is seen.IMPRESSION1. No significant change in lung aeration.2. No evidence for acute rib fracture can be identified.Electronically signed by: ANDRIA ESTRELLA (Jun 06, 2020 21:31:36)
[2020-06-06] MEDS: LIPITOR TAB 40 MG PO SCH (21:40)
[2020-06-06] MEDS: RESTORIL CAP 15 MG PO PRN (21:40)
[2020-06-06] MEDS: FLOMAX PO SCH (21:40)
[2020-06-07] MEDS: DUONEB 0.5 MG/3 MG (3 mL) NEB SCH ×6 (00:15→21:34)
[2020-06-07] MEDS: HALDOL INJ IVP PRN ×3 (00:38→21:11)
[2020-06-07 04:24] LABS: ABG ALLEN TEST POS; ABG HCO3 21.8 mmol/L (22-26)
[2020-06-07 04:56] LABS: FRACTIONATED INSPIRED OXYGEN 21
[2020-06-07 05:29] LABS: BASOPHILS % (AUTO) 0.1 % (0.2-1.0); HEMATOCRIT 27.5 % (42.0-54.0); LYMPHOCYTES # (AUTO) 1.1 X10^3/uL (1.3-2.9); LYMPHOCYTES % (AUTO) 20.8 % (21.0-51.0); MEAN CORPUSCULAR HEMOGLOBIN 24.6 pg (27.0-34.0); MEAN CORPUSCULAR HGB CONC 32.8 g/dL (33.0-35.0); MEAN CORPUSCULAR VOLUME 75.1 fL (80.0-100.0); MEAN PLATELET VOLUME 8.6 fL (7.4-11.0); MONOCYTES # (AUTO) 0.5 x10^3/uL (0.3-0.8); MONOCYTES % (AUTO) 9.1 % (0.0-13.0); NEUTROPHILS # (AUTO) 3.7 x10^3/uL (2.2-4.8); PLATELET COUNT 170 X10^3/uL (150.0-450.0); RED BLOOD COUNT 3.66 X10^6/uL (4.7-6.0); RED CELL DISTRIBUTION WIDTH 21.2 % (11.6-16.5); WHITE BLOOD COUNT 5.3 X10^3/uL (3.6-10.0)
[2020-06-07] MEDS: ZOSYN VIAL 3.375 GRAMS 3.375 G in NS 100 ML IV + SPIKE MINIBAG* 100 ML IV SCH ×3 (05:30→21:10)
[2020-06-07] MEDS: DILAUDID INJ IVP PRN ×4 (05:30→21:59)
[2020-06-07 05:53] LABS: ANISOCYTOSIS 1+; HYPOCHROMASIA 1+; PLATELET MORPHOLOGY COMMENT NORMAL (NORMAL)
[2020-06-07 05:55] LABS: ALANINE AMINOTRANSFERASE 12 Units/L (12-78); ALBUMIN 2.4 g/dL (3.4-5.0); ALKALINE PHOSPHATASE 58 Units/L (46-116); ASPARTATE AMINO TRANSFERASE 25 Units/L (15-37); BLOOD UREA NITROGEN 11 mg/dL (7-18); CALCIUM 8.1 mg/dL (8.5-10.1); CARBON DIOXIDE 24.1 mmol/L (21-32); CHLORIDE 109 mmol/L (98-107); COR CA(FOR HYPOALB) 9.4 mg/dL (8.5-10.1); CREATININE 0.68 mg/dL (0.70-1.30); SODIUM 143 mmol/L (136-145); TOTAL PROTEIN 6.6 g/dL (6.4-8.2); eGFR NON BLACK RACES > 60 (>60)
[2020-06-07] MEDS ORDERED: MICRO K EXTEN CAP 10 MEQ PO PRN (06:20)
[2020-06-07] MEDS ORDERED: KLOR-CON PO PRN (06:20)
[2020-06-07] MEDS ORDERED: POTASSIUM CHL 60 MEQ/NS 0.45% 500 ML IV PRN (06:20)
[2020-06-07] MEDS ORDERED: POTASSIUM CHLORIDE LIQ 20 MEQ UDC PO PRN (06:20)
[2020-06-07] MEDS ORDERED: POTASSIUM CHL 40 MEQ/NS 0.45% 500 ML IV PRN (06:20)
[2020-06-07] MEDS: NS 1000 ML 1,000 ML IV SCH (07:07)
[2020-06-07] MEDS: COREG TAB 25 MG PO SCH ×2 (08:52→20:58)
[2020-06-07] MEDS: LOVENOX INJ 40 MG SYR SC SCH (08:52)
[2020-06-07] MEDS: ZESTRIL TAB 40 MG PO SCH (08:53)
[2020-06-07] MEDS: RANEXA PO SCH ×2 (08:53→21:05)
[2020-06-07] MEDS: ZITHROMAX INJ 500 MG VIAL 500 MG in NS 250 ML IV 250 ML IV SCH (08:53)
[2020-06-07] MEDS: REMDESIVIR 100 MG in NS 250 ML IV 250 ML IV SCH (08:53)
[2020-06-07] MEDS: OFIRMEV IV 1000 MG VIAL 1,000 MG/100 ML VIAL IV PRN (09:12)
[2020-06-07 13:41] LABS: ABG ALLEN TEST POS; ABG BASE EXCESS -2.8 mmol/L (-2.0-2.0); ABG HCO3 20.6 mmol/L (22-26)
[2020-06-07] MEDS ORDERED: TORADOL 15 MG VIAL IVP ONE (13:47)
[2020-06-07] MEDS: SOLU-Medrol 125 MG VIAL IVP SCH ×2 (14:06→21:18)
[2020-06-07] MEDS: PROCARDIA XL 24-hr PO SCH (14:17)
[2020-06-07] MEDS: COLACE CAP 100 MG PO SCH ×2 (14:17→20:57)
[2020-06-07] MEDS ORDERED: BENADRYL INJ 50 MG VIAL IVP ONE (15:18)
[2020-06-07] MEDS ORDERED: BENADRYL INJ 50 MG VIAL ONE (15:22)
--- NOTE | 2020-06-07 16:01 | RAD ---
HISTORYSOBSTUDYCHEST, 1 VIEWCOMPARISONOctober 2019FINDINGSThe trachea is midline. The cardiac silhouette is stable as is a right-sided central line.. The lungs demonstrate worsening airspace disease throughout both lungs compared to prior.. The bony thorax is unremarkable.IMPRESSIONWorsening multifocal airspace disease.Electronically signed by: JOE CABRERA (Jun 07, 2020 15:59:41)
--- NOTE | 2020-06-07 16:19 | CT ---
HISTORYPT C/O LOWER BACK PAIN AND LEFT HIP PAINSTUDYLUMBAR SPINE W/O CONCOMPARISONCT 06/02/2020TECHNIQUEMultiple axial images of the lumbar spine were obtained from the thoracolumbar junction to the sacrum without the administration of IV contrast. Sagittal and coronal reformats were performed and reviewed. Dose reduction techniques including Automated Exposure Control (AEC) and adjustment of mA and kV were utilized.FINDINGSNo acute lumbar spine fracture. Minimal degenerative endplate changes and facet arthropathy. Nonspecific 1.7 cm sclerotic lesion in the vertebral body of L4 on the right.Scattered vascular calcifications. No acute soft tissue abnormality. IVC filter.IMPRESSIONNo acute lumbar spine fracture. No significant degenerative changes.Electronically signed by: ARTEMIO GARCIA (Jun 07, 2020 16:17:40)
--- NOTE | 2020-06-07 16:23 | CT ---
HISTORYPT C/O LOWER BACK PAIN AND LEFT HIP PAINSTUDYPELVIS W/O CONCOMPARISONCT abdomen and pelvis dated 06/02/2020TECHNIQUEAxial images through the pelvis was performed without intravenous contrast. CT scan was performed following ALARA (As low as Reasonably Achievable).Coronal and Sagittal reformatted images were performed.FINDINGSThe bladder is mildly distended. There is no free fluid in the cul de sac. The prostate is mildly prominent with few coarse calcifications measuring 4.1 x 5.3 centimeters. There is no pelvic or inguinal adenopathy. There are some surgical clips in the left inguinal region with small scar. There are some sutures in the right lower quadrant /small bowel loops. There is some contrast in the right colon/ the rectosigmoid colon is no significant distended. There are multiple sutures along the mesentery in the mid aspect. There is also and scar along the anterior abdominal wall.Bone windows there is no evidence of aggressive bone lesions/ no acute fractures are seen/ the pubic ramus are intact /no dominant masses in the muscular plane. There is a focal area of sclerosis in the right aspect of L4 vertebral body narrow zone of transition region could represent a calcified hemagioma. The sacroiliac joints demonstrate no abnormalities.IMPRESSIONDistended bladder. No free air or free fluid. No acute fractures or aggressive bone lesions. No dominant masses in the left hip.Old postoperative changes with scarring in the anterior abdominal wall.Electronically signed by: Ivette Ferrer (Jun 07, 2020 16:22:15)
[2020-06-07 16:30] LABS: CKMB % 0.4 % (<4); CREATINE KINASE 273 Units/L (39-308); CREATINE KINASE MB < 1.0 ng/mL (0-4.0); TROPONIN I 0.02 ng/mL (0-1.5)
[2020-06-07] MEDS: LASIX IVP SCH (16:41)
[2020-06-07] MEDS: K-RIDER 10 MEQ/NS 100 ML 10 MEQ/100 ML BAG IV PRN (16:42)
[2020-06-07 19:16] LABS: BILIRUBIN,URINE NEGATIVE (NEGATIVE); BLOOD/HEMOGLOBIN,URINE 1+ (NEGATIVE); GLUCOSE, URINE NEGATIVE (NEGATIVE); KETONES,URINE 3+ (NEGATIVE); LEUKOCYTE ESTERASE ,URINE NEGATIVE (NEGATIVE); NITRITES,URINE NEGATIVE (NEGATIVE); PROTEIN,URINE 2+ (NEGATIVE); UROBILINOGEN,URINE NORMAL (NORMAL)
[2020-06-07 19:25] LABS: APPEARANCE,URINE SLIGHTLY HAZY (CLEAR); BACTERIA,URINE NEGATIVE /HPF (NEGATIVE); COLOR,URINE YELLOW (YELLOW); RBC,URINE 0-2 /HPF (0-3); SQUAMOUS EPITHELIAL CELL,UR RARE /HPF (NEGATIVE)
[2020-06-07 19:26] LABS: MUCUS,URINE FEW /HPF (NEGATIVE)
[2020-06-07] MEDS: FLOMAX PO SCH (20:58)
[2020-06-07] MEDS: LIPITOR TAB 40 MG PO SCH (20:59)
[2020-06-07] MEDS: REQUIP PO SCH (21:06)
[2020-06-07] MEDS: K-DUR TAB 20 MEQ PO PRN (21:10)
[2020-06-07] MEDS: PEPCID TAB 20 MG PO SCH (21:17)
[2020-06-08] MEDS: DUONEB 0.5 MG/3 MG (3 mL) NEB SCH ×5 (00:23→21:15)
[2020-06-08] MEDS: NS 1000 ML 1,000 ML IV SCH ×2 (01:38→10:38)
[2020-06-08] MEDS: HALDOL INJ IVP PRN ×3 (03:48→22:57)
[2020-06-08 05:14] LABS: BASOPHILS % (AUTO) 0.1 % (0.2-1.0); HEMATOCRIT 27.6 % (42.0-54.0); HEMOGLOBIN 8.8 g/dL (13.5-18.0); LYMPHOCYTES # (AUTO) 0.5 X10^3/uL (1.3-2.9); LYMPHOCYTES % (AUTO) 6.6 % (21.0-51.0); MEAN CORPUSCULAR HEMOGLOBIN 24.1 pg (27.0-34.0); MEAN CORPUSCULAR HGB CONC 31.7 g/dL (33.0-35.0); MEAN PLATELET VOLUME 8.9 fL (7.4-11.0); MONOCYTES # (AUTO) 0.3 x10^3/uL (0.3-0.8); MONOCYTES % (AUTO) 4.5 % (0.0-13.0); NEUTROPHILS # (AUTO) 6.3 x10^3/uL (2.2-4.8); NEUTROPHILS % (AUTO) 88.8 % (42.0-75.0); PLATELET COUNT 174 X10^3/uL (150.0-450.0); RED BLOOD COUNT 3.63 X10^6/uL (4.7-6.0); RED CELL DISTRIBUTION WIDTH 21.5 % (11.6-16.5); WHITE BLOOD COUNT 7.1 X10^3/uL (3.6-10.0)
[2020-06-08 05:28] LABS: ALANINE AMINOTRANSFERASE 13 Units/L (12-78); ALBUMIN 2.2 g/dL (3.4-5.0); ALKALINE PHOSPHATASE 54 Units/L (46-116); ASPARTATE AMINO TRANSFERASE 25 Units/L (15-37); BLOOD UREA NITROGEN 19 mg/dL (7-18); CALCIUM 8.2 mg/dL (8.5-10.1); CARBON DIOXIDE 21.9 mmol/L (21-32); CHLORIDE 110 mmol/L (98-107); COR CA(FOR HYPOALB) 9.6 mg/dL (8.5-10.1); COR NA(FOR HYPERGLY) 147 mmol/L (136-145); CREATININE 0.73 mg/dL (0.70-1.30); SODIUM 144 mmol/L (136-145); TOTAL PROTEIN 6.5 g/dL (6.4-8.2); eGFR NON BLACK RACES > 60 (>60)
[2020-06-08 05:42] LABS: ANISOCYTOSIS 1+; HYPOCHROMASIA 1+; OVALOCYTES PRESENT; PLATELET MORPHOLOGY COMMENT NORMAL (NORMAL)
[2020-06-08] MEDS: SOLU-Medrol 125 MG VIAL IVP SCH ×3 (05:47→21:00)
[2020-06-08] MEDS: ZOSYN VIAL 3.375 GRAMS 3.375 G in NS 100 ML IV + SPIKE MINIBAG* 100 ML IV SCH ×3 (05:48→21:00)
[2020-06-08] MEDS: COLACE CAP 100 MG PO SCH (08:14)
[2020-06-08] MEDS: COREG TAB 25 MG PO SCH (08:16)
[2020-06-08] MEDS: LOVENOX INJ 40 MG SYR SC SCH (08:17)
[2020-06-08] MEDS: PEPCID TAB 20 MG PO SCH (08:17)
[2020-06-08] MEDS: PROCARDIA XL 24-hr PO SCH (08:18)
[2020-06-08] MEDS: PLAVIX PO SCH (08:18)
[2020-06-08] MEDS: RANEXA PO SCH (08:18)
[2020-06-08] MEDS: REMDESIVIR 100 MG in NS 250 ML IV 250 ML IV SCH (08:19)
[2020-06-08] MEDS: ZESTRIL TAB 40 MG PO SCH (08:19)
[2020-06-08] MEDS: ZITHROMAX INJ 500 MG VIAL 500 MG in NS 250 ML IV 250 ML IV SCH (08:19)
[2020-06-08] MEDS: LASIX IVP SCH ×2 (08:20→17:39)
[2020-06-08 09:50] LABS: ABG BASE EXCESS -3.4 mmol/L (-2.0-2.0); ABG HCO3 19.9 mmol/L (22-26)
[2020-06-08] MEDS: DILAUDID INJ IVP PRN ×2 (10:37→20:29)
--- NOTE | 2020-06-08 13:18 | RAD ---
HISTORYPENUMONIASTUDYCHEST, 1 ECVILBBYADFSPP56/26/2020FINDINGSBilateral pneumonia has not changed significantly. Relative sparing o f the lower half left lung.No pleural effusion or pneumothorax.The heart size is magnified.Bones are unremarkable.Right jugular central venous catheter is in the expected location of the superior vena c sona. Median sternotomy wires are present. EKG leads are noted.IMPRESSION1. Unchanged pneumoniaElectro nically signed by: Chago Hathaway (Jun 08, 2020 13:17:51)
[2020-06-08] MEDS ORDERED: BENADRYL INJ 50 MG VIAL IVP SCH (14:00)
[2020-06-08] MEDS ORDERED: BENADRYL INJ 50 MG VIAL ONE (14:03)
[2020-06-08] MEDS ORDERED: PREDNISONE TAB 20 MG PO ONE ×2 (17:30→23:30)
[2020-06-09] MEDS: COREG TAB 25 MG PO SCH ×3 (00:01→21:25)
[2020-06-09] MEDS: COLACE CAP 100 MG PO SCH ×3 (00:01→21:25)
[2020-06-09] MEDS: FLOMAX PO SCH ×2 (00:02→21:26)
[2020-06-09] MEDS: LIPITOR TAB 40 MG PO SCH ×2 (00:03→21:33)
[2020-06-09] MEDS: PATIENT'S HOME MEDICATION (Melatonin 5 MG) PO SCH ×2 (00:03→00:04)
[2020-06-09] MEDS: PEPCID TAB 20 MG PO SCH ×3 (00:04→21:37)
[2020-06-09] MEDS: RANEXA PO SCH ×3 (00:05→21:38)
[2020-06-09] MEDS: REQUIP PO SCH ×2 (00:06→21:38)
[2020-06-09] MEDS: DILAUDID INJ IVP PRN ×5 (00:47→18:59)
[2020-06-09] MEDS: DUONEB 0.5 MG/3 MG (3 mL) NEB SCH ×6 (01:00→21:26)
[2020-06-09] MEDS: NS 1000 ML 1,000 ML IV SCH (02:41)
[2020-06-09 05:26] LABS: BASOPHILS % (AUTO) 0.2 % (0.2-1.0); HEMATOCRIT 27.8 % (42.0-54.0); HEMOGLOBIN 8.9 g/dL (13.5-18.0); LYMPHOCYTES # (AUTO) 0.4 X10^3/uL (1.3-2.9); LYMPHOCYTES % (AUTO) 2.8 % (21.0-51.0); MEAN CORPUSCULAR HEMOGLOBIN 23.6 pg (27.0-34.0); MEAN CORPUSCULAR VOLUME 73.8 fL (80.0-100.0); MEAN PLATELET VOLUME 8.8 fL (7.4-11.0); MONOCYTES # (AUTO) 0.9 x10^3/uL (0.3-0.8); MONOCYTES % (AUTO) 6.5 % (0.0-13.0); NEUTROPHILS # (AUTO) 13.1 x10^3/uL (2.2-4.8); NEUTROPHILS % (AUTO) 90.5 % (42.0-75.0); PLATELET COUNT 268 X10^3/uL (150.0-450.0); RED BLOOD COUNT 3.77 X10^6/uL (4.7-6.0); RED CELL DISTRIBUTION WIDTH 21.3 % (11.6-16.5); WHITE BLOOD COUNT 14.5 X10^3/uL (3.6-10.0)
[2020-06-09] MEDS ORDERED: PREDNISONE TAB 20 MG PO ONE (05:30)
[2020-06-09] MEDS ORDERED: BENADRYL CAP 50 MG PO ONE (05:30)
[2020-06-09 05:40] LABS: ALANINE AMINOTRANSFERASE 15 Units/L (12-78); ALBUMIN 2.5 g/dL (3.4-5.0); ALKALINE PHOSPHATASE 64 Units/L (46-116); ASPARTATE AMINO TRANSFERASE 33 Units/L (15-37); BLOOD UREA NITROGEN 27 mg/dL (7-18); CALCIUM 8.5 mg/dL (8.5-10.1); CARBON DIOXIDE 25.5 mmol/L (21-32); CHLORIDE 113 mmol/L (98-107); COR CA(FOR HYPOALB) 9.7 mg/dL (8.5-10.1); COR NA(FOR HYPERGLY) 151 mmol/L (136-145); CREATININE 0.73 mg/dL (0.70-1.30); SODIUM 149 mmol/L (136-145); eGFR NON BLACK RACES > 60 (>60)
[2020-06-09 05:50] LABS: ANISOCYTOSIS 1+; BAND NEUTROPHILS % 1 % (0-10); HYPOCHROMASIA 1+; OVALOCYTES PRESENT; PLATELET MORPHOLOGY COMMENT NORMAL (NORMAL)
[2020-06-09] MEDS: K-RIDER 10 MEQ/NS 100 ML 10 MEQ/100 ML BAG IV PRN ×11 (06:00→23:58)
[2020-06-09] MEDS: SOLU-Medrol 125 MG VIAL IVP SCH ×3 (06:22→21:39)
[2020-06-09] MEDS: ZOSYN VIAL 3.375 GRAMS 3.375 G in NS 100 ML IV + SPIKE MINIBAG* 100 ML IV SCH ×3 (06:27→21:40)
[2020-06-09] MEDS: HALDOL INJ IVP PRN ×3 (06:48→18:31)
[2020-06-09] MEDS ORDERED: K-RIDER 10 MEQ/NS 100 ML 10 MEQ/100 ML BAG IV ONE (07:49)
[2020-06-09] MEDS: D5W 1000 ML IV 1,000 ML IV SCH (09:09)
[2020-06-09] MEDS: MAGNESIUM SULFATE 1 GRAM/100 mL PREMIX 1 GM/100 ML BAG IV PRN ×2 (09:10→11:40)
[2020-06-09] MEDS: LOVENOX INJ 40 MG SYR SC SCH (09:17)
[2020-06-09] MEDS: ZITHROMAX INJ 500 MG VIAL 500 MG in NS 250 ML IV 250 ML IV SCH (09:18)
[2020-06-09] MEDS: PLAVIX PO SCH (09:54)
[2020-06-09] MEDS ORDERED: BENADRYL INJ 50 MG VIAL IVP ONE (11:00)
[2020-06-09] MEDS: ZESTRIL TAB 40 MG PO SCH (13:02)
[2020-06-09] MEDS: PROCARDIA XL 24-hr PO SCH (13:02)
[2020-06-09 13:14] LABS: ABG BASE EXCESS 0.2 mmol/L (-2.0-2.0); ABG HCO3 22.3 mmol/L (22-26)
[2020-06-09] MEDS ORDERED: TORADOL 30 MG VIAL IVP ONE (15:49)
[2020-06-09] MEDS: BENADRYL INJ 50 MG VIAL IVP SCH (16:00)
[2020-06-09] MEDS: PRECEDEX 400 MCG/100 ML PREMIX 400 MCG/100 ML INFUS..BTL IV PRN ×2 (16:21→23:51)
[2020-06-09 16:38] LABS: ALANINE AMINOTRANSFERASE 18 Units/L (12-78); ALBUMIN 2.7 g/dL (3.4-5.0); ALKALINE PHOSPHATASE 71 Units/L (46-116); ASPARTATE AMINO TRANSFERASE 42 Units/L (15-37); BLOOD UREA NITROGEN 29 mg/dL (7-18); CALCIUM 8.6 mg/dL (8.5-10.1); CARBON DIOXIDE 26.3 mmol/L (21-32); CHLORIDE 112 mmol/L (98-107); COR CA(FOR HYPOALB) 9.6 mg/dL (8.5-10.1); COR NA(FOR HYPERGLY) 151 mmol/L (136-145); CREATININE 0.83 mg/dL (0.70-1.30); SODIUM 148 mmol/L (136-145); TOTAL PROTEIN 7.4 g/dL (6.4-8.2); eGFR NON BLACK RACES > 60 (>60)
--- NOTE | 2020-06-09 16:45 | RAD ---
HISTORYPNEUMONIA, COVID +STUDYCHEST, 1 VIEWCOMPARISONFINDINGSThe trachea is midline. The cardiac silhouette is unremarkable. A right internal jugular central venous catheter is in place tip in the superior vena cava. There are sternotomy wires from prior surgery. The infiltrates on the right show no significant change from the recent film June 08, 2020 but there is worsening infiltrate in the left upper lobe compared to yesterdays film. There is no effusion or pneumothorax. The bony thorax is unremarkable.IMPRESSIONStable infiltrates on the right but worsening infiltrate in the left upper lobe compared to yesterdays film.Electronically signed by: ALANNA ULLOA (Jun 09, 2020 16:43:38)
[2020-06-09 16:55] LABS: ABG BASE EXCESS 1.6 mmol/L (-2.0-2.0); ABG HCO3 23.4 mmol/L (22-26)
[2020-06-10] MEDS: BENADRYL INJ 50 MG VIAL IVP SCH ×3 (00:01→16:20)
[2020-06-10] MEDS: DUONEB 0.5 MG/3 MG (3 mL) NEB SCH ×6 (01:00→20:10)
[2020-06-10] MEDS: K-RIDER 10 MEQ/NS 100 ML 10 MEQ/100 ML BAG IV PRN (01:28)
[2020-06-10] MEDS: DILAUDID INJ IVP PRN ×5 (02:45→20:03)
[2020-06-10] MEDS: D5W 1000 ML IV 1,000 ML IV SCH (04:16)
[2020-06-10] MEDS: HALDOL INJ IVP PRN (04:16)
[2020-06-10 05:37] LABS: BASOPHILS % (AUTO) 0.1 % (0.2-1.0); HEMATOCRIT 26.4 % (42.0-54.0); HEMOGLOBIN 8.5 g/dL (13.5-18.0); LYMPHOCYTES # (AUTO) 0.3 X10^3/uL (1.3-2.9); LYMPHOCYTES % (AUTO) 3.1 % (21.0-51.0); MEAN CORPUSCULAR HEMOGLOBIN 23.9 pg (27.0-34.0); MEAN CORPUSCULAR HGB CONC 32.3 g/dL (33.0-35.0); MONOCYTES # (AUTO) 0.5 x10^3/uL (0.3-0.8); MONOCYTES % (AUTO) 5.6 % (0.0-13.0); NEUTROPHILS # (AUTO) 8.9 x10^3/uL (2.2-4.8); NEUTROPHILS % (AUTO) 91.2 % (42.0-75.0); PLATELET COUNT 277 X10^3/uL (150.0-450.0); RED BLOOD COUNT 3.56 X10^6/uL (4.7-6.0); RED CELL DISTRIBUTION WIDTH 21.2 % (11.6-16.5); WHITE BLOOD COUNT 9.8 X10^3/uL (3.6-10.0)
[2020-06-10] MEDS: SOLU-Medrol 125 MG VIAL IVP SCH ×3 (05:42→21:05)
[2020-06-10] MEDS: ZOSYN VIAL 3.375 GRAMS 3.375 G in NS 100 ML IV + SPIKE MINIBAG* 100 ML IV SCH ×3 (05:42→21:06)
[2020-06-10 05:45] LABS: ALANINE AMINOTRANSFERASE 20 Units/L (12-78); ALBUMIN 2.5 g/dL (3.4-5.0); ALKALINE PHOSPHATASE 68 Units/L (46-116); ASPARTATE AMINO TRANSFERASE 36 Units/L (15-37); BLOOD UREA NITROGEN 30 mg/dL (7-18); CALCIUM 8.6 mg/dL (8.5-10.1); CARBON DIOXIDE 24.5 mmol/L (21-32); CHLORIDE 113 mmol/L (98-107); COR CA(FOR HYPOALB) 9.8 mg/dL (8.5-10.1); COR NA(FOR HYPERGLY) 151 mmol/L (136-145); CREATININE 0.61 mg/dL (0.70-1.30); SODIUM 148 mmol/L (136-145); TOTAL PROTEIN 6.9 g/dL (6.4-8.2); eGFR NON BLACK RACES > 60 (>60)
[2020-06-10 05:57] LABS: ANISOCYTOSIS 1+; HYPOCHROMASIA 1+; OVALOCYTES PRESENT; PLATELET MORPHOLOGY COMMENT NORMAL (NORMAL); TEAR DROP CELLS PRESENT
[2020-06-10] MEDS: PRECEDEX 400 MCG/100 ML PREMIX 400 MCG/100 ML INFUS..BTL IV PRN ×3 (08:02→20:26)
[2020-06-10] MEDS: D5W 1000 ML IV 1,000 ML with POTASSIUM CHLORIDE INJ 20 MEQ VIAL 20 MEQ IV SCH ×2 (09:10)
[2020-06-10] MEDS: LOVENOX INJ 40 MG SYR SC SCH (09:11)
[2020-06-10] MEDS: ZITHROMAX INJ 500 MG VIAL 500 MG in NS 250 ML IV 250 ML IV SCH (09:24)
[2020-06-10] MEDS: COLACE CAP 100 MG PO SCH ×2 (09:58→20:14)
[2020-06-10] MEDS: COREG TAB 25 MG PO SCH ×2 (09:59→20:14)
[2020-06-10] MEDS: PEPCID TAB 20 MG PO SCH ×2 (09:59→20:14)
[2020-06-10] MEDS: PROCARDIA XL 24-hr PO SCH (09:59)
[2020-06-10] MEDS: ZESTRIL TAB 40 MG PO SCH (09:59)
[2020-06-10] MEDS: RANEXA PO SCH ×2 (09:59→20:14)
[2020-06-10] MEDS: PLAVIX PO SCH (09:59)
--- NOTE | 2020-06-10 10:08 | RAD ---
HISTORYPNEUMONIASTUDYCHEST, 1 EGHIUSBAKHOKWF68/28/2020TECHNIQUEAP view of the chestFINDINGSRight IJ central line in good position. Post median sternotomy and CABG. The cardiac silhouette is stably enlarged. Stable bilateral airspace disease. No definite pleural effusion or pneumothorax.IMPRESSIONNo significant change.Electronically signed by: Rodrigo Acuña (Jun 10, 2020 10:07:11)
--- NOTE | 2020-06-10 10:10 | RAD ---
HISTORYABDOMINAL PAIN/IIMXTZVYZUTADVGRAIWJNNDYQPGZNK96/23/2020TECHNIQUETwo-view KUBFINDINGSPulmonary airspace disease noted. There is mildly dilated gas-filled bowel. Cardiomegaly. IVC filter noted. No free air. Surgica l clips in the left upper and right upper quadrants. Multiple scattered abdominal calcifications agai n noted. No pneumatosis or portal venous gas.IMPRESSIONMildly dilated gas-filled bowel may represent ileus.Electronically signed by: Rodrigo Acuña (Jun 10, 2020 10:08:56)
[2020-06-10 10:55] LABS: ABG BASE EXCESS 1.3 mmol/L (-2.0-2.0); ABG HCO3 24.9 mmol/L (22-26)
[2020-06-10] MEDS: LIPITOR TAB 40 MG PO SCH (20:14)
[2020-06-10] MEDS: FLOMAX PO SCH (20:14)
[2020-06-10] MEDS: REQUIP PO SCH (20:15)
[2020-06-11] MEDS: DUONEB 0.5 MG/3 MG (3 mL) NEB SCH ×6 (00:11→21:02)
[2020-06-11] MEDS: DILAUDID INJ IVP PRN ×5 (00:21→23:20)
[2020-06-11] MEDS: BENADRYL INJ 50 MG VIAL IVP SCH ×3 (01:10→15:50)
[2020-06-11] MEDS: PRECEDEX 400 MCG/100 ML PREMIX 400 MCG/100 ML INFUS..BTL IV PRN ×3 (03:45→16:00)
[2020-06-11] MEDS: SOLU-Medrol 125 MG VIAL IVP SCH ×3 (05:31→22:19)
[2020-06-11] MEDS: ZOSYN VIAL 3.375 GRAMS 3.375 G in NS 100 ML IV + SPIKE MINIBAG* 100 ML IV SCH ×3 (05:31→22:19)
[2020-06-11 06:08] LABS: BASOPHILS % (AUTO) 0.4 % (0.2-1.0); HEMATOCRIT 26.2 % (42.0-54.0); HEMOGLOBIN 8.6 g/dL (13.5-18.0); LYMPHOCYTES # (AUTO) 0.3 X10^3/uL (1.3-2.9); LYMPHOCYTES % (AUTO) 3.4 % (21.0-51.0); MEAN CORPUSCULAR HEMOGLOBIN 24.4 pg (27.0-34.0); MEAN CORPUSCULAR HGB CONC 32.8 g/dL (33.0-35.0); MEAN CORPUSCULAR VOLUME 74.3 fL (80.0-100.0); MEAN PLATELET VOLUME 8.6 fL (7.4-11.0); MONOCYTES # (AUTO) 0.5 x10^3/uL (0.3-0.8); MONOCYTES % (AUTO) 5.5 % (0.0-13.0); NEUTROPHILS # (AUTO) 7.8 x10^3/uL (2.2-4.8); NEUTROPHILS % (AUTO) 90.7 % (42.0-75.0); PLATELET COUNT 274 X10^3/uL (150.0-450.0); RED BLOOD COUNT 3.53 X10^6/uL (4.7-6.0); WHITE BLOOD COUNT 8.6 X10^3/uL (3.6-10.0)
[2020-06-11 06:28] LABS: ALANINE AMINOTRANSFERASE 16 Units/L (12-78); ALBUMIN 2.4 g/dL (3.4-5.0); ALKALINE PHOSPHATASE 78 Units/L (46-116); ASPARTATE AMINO TRANSFERASE 24 Units/L (15-37); BLOOD UREA NITROGEN 21 mg/dL (7-18); CALCIUM 7.9 mg/dL (8.5-10.1); CARBON DIOXIDE 25.5 mmol/L (21-32); CHLORIDE 107 mmol/L (98-107); COR CA(FOR HYPOALB) 9.2 mg/dL (8.5-10.1); COR NA(FOR HYPERGLY) 146 mmol/L (136-145); CREATININE 0.67 mg/dL (0.70-1.30); MAGNESIUM 2.1 mg/dL (1.7-2.9); SODIUM 142 mmol/L (136-145); TOTAL PROTEIN 6.2 g/dL (6.4-8.2); eGFR NON BLACK RACES > 60 (>60)
[2020-06-11 07:04] LABS: ANISOCYTOSIS 1+; PLATELET MORPHOLOGY COMMENT NORMAL (NORMAL)
[2020-06-11] MEDS: NORCO 7.5/325 MG TAB PO PRN ×3 (08:21→20:15)
[2020-06-11] MEDS: PLAVIX PO SCH (08:22)
[2020-06-11] MEDS: PROCARDIA XL 24-hr PO SCH (08:22)
[2020-06-11] MEDS: COLACE CAP 100 MG PO SCH ×2 (08:22→21:17)
[2020-06-11] MEDS: PEPCID TAB 20 MG PO SCH ×2 (08:23→21:18)
[2020-06-11] MEDS: LOVENOX INJ 40 MG SYR SC SCH (08:24)
[2020-06-11] MEDS: ZESTRIL TAB 40 MG PO SCH (08:24)
[2020-06-11] MEDS: ZITHROMAX INJ 500 MG VIAL 500 MG in NS 250 ML IV 250 ML IV SCH (08:25)
[2020-06-11] MEDS: COREG TAB 25 MG PO SCH ×2 (08:28→21:17)
[2020-06-11] MEDS: RANEXA PO SCH ×2 (08:28→21:18)
[2020-06-11] MEDS: D5W 1000 ML IV 1,000 ML with POTASSIUM CHLORIDE INJ 20 MEQ VIAL 20 MEQ IV SCH ×2 (11:30)
[2020-06-11] MEDS: FLOMAX PO SCH (21:17)
[2020-06-11] MEDS: LIPITOR TAB 40 MG PO SCH (21:18)
[2020-06-11] MEDS: REQUIP PO SCH (21:18)
[2020-06-11] MEDS: RESTORIL CAP 15 MG PO PRN (22:22)
[2020-06-12] MEDS: DUONEB 0.5 MG/3 MG (3 mL) NEB SCH ×6 (01:22→21:13)
[2020-06-12] MEDS: DILAUDID INJ IVP PRN ×4 (03:30→18:41)
[2020-06-12] MEDS: BENADRYL INJ 50 MG VIAL IVP PRN (04:01)
[2020-06-12 05:23] LABS: BASOPHILS % (AUTO) 0.1 % (0.2-1.0); HEMOGLOBIN 8.7 g/dL (13.5-18.0); LYMPHOCYTES # (AUTO) 0.3 X10^3/uL (1.3-2.9); LYMPHOCYTES % (AUTO) 3.3 % (21.0-51.0); MEAN CORPUSCULAR HGB CONC 32.4 g/dL (33.0-35.0); MEAN CORPUSCULAR VOLUME 74.1 fL (80.0-100.0); MONOCYTES # (AUTO) 0.5 x10^3/uL (0.3-0.8); MONOCYTES % (AUTO) 4.8 % (0.0-13.0); NEUTROPHILS # (AUTO) 9.7 x10^3/uL (2.2-4.8); NEUTROPHILS % (AUTO) 91.8 % (42.0-75.0); PLATELET COUNT 346 X10^3/uL (150.0-450.0); RED BLOOD COUNT 3.64 X10^6/uL (4.7-6.0); RED CELL DISTRIBUTION WIDTH 21.3 % (11.6-16.5); WHITE BLOOD COUNT 10.5 X10^3/uL (3.6-10.0)
[2020-06-12] MEDS: ZOSYN VIAL 3.375 GRAMS 3.375 G in NS 100 ML IV + SPIKE MINIBAG* 100 ML IV SCH ×3 (05:30→21:41)
[2020-06-12] MEDS: SOLU-Medrol 125 MG VIAL IVP SCH ×3 (05:30→21:40)
[2020-06-12 05:38] LABS: ALANINE AMINOTRANSFERASE 14 Units/L (12-78); ALBUMIN 2.3 g/dL (3.4-5.0); ALKALINE PHOSPHATASE 76 Units/L (46-116); ASPARTATE AMINO TRANSFERASE 15 Units/L (15-37); BLOOD UREA NITROGEN 16 mg/dL (7-18); CALCIUM 7.9 mg/dL (8.5-10.1); CARBON DIOXIDE 27.2 mmol/L (21-32); CHLORIDE 105 mmol/L (98-107); COR CA(FOR HYPOALB) 9.3 mg/dL (8.5-10.1); COR NA(FOR HYPERGLY) 144 mmol/L (136-145); CREATININE 0.72 mg/dL (0.70-1.30); SODIUM 141 mmol/L (136-145); TOTAL PROTEIN 5.9 g/dL (6.4-8.2); eGFR NON BLACK RACES > 60 (>60)
[2020-06-12 06:19] LABS: HYPOCHROMASIA 1+; MICROCYTOSIS SLIGHT; PLATELET MORPHOLOGY COMMENT NORMAL (NORMAL)
[2020-06-12 06:20] LABS: ANISOCYTOSIS 1+
[2020-06-12] MEDS: D5W 1000 ML IV 1,000 ML with POTASSIUM CHLORIDE INJ 20 MEQ VIAL 20 MEQ IV SCH ×4 (06:36→14:40)
--- NOTE | 2020-06-12 07:19 | RAD ---
HISTORYPneumoniaSTUDYAP jwrxfMHFPENEOSP17/29/2020FINDINGSMild cardiomegaly. Bilateral diffuse infiltrates again noted with slight interval improvement. Clearing of the lungs is incomplete, however. No change in position of right IJ line.IMPRESSIONSlightly improved bilateral infiltrates/pneumonia.Electronically signed by: MAXX CHAVEZ (Jun 12, 2020 07:17:35)
[2020-06-12] MEDS: ZITHROMAX INJ 500 MG VIAL 500 MG in NS 250 ML IV 250 ML IV SCH (08:02)
[2020-06-12] MEDS: LOVENOX INJ 40 MG SYR SC SCH (08:03)
[2020-06-12] MEDS: COLACE CAP 100 MG PO SCH ×2 (08:06→21:39)
[2020-06-12] MEDS: COREG TAB 25 MG PO SCH ×2 (08:06→21:39)
[2020-06-12] MEDS: PEPCID TAB 20 MG PO SCH ×2 (08:07→21:40)
[2020-06-12] MEDS: PLAVIX PO SCH (08:07)
[2020-06-12] MEDS: RANEXA PO SCH ×2 (08:08→21:40)
[2020-06-12] MEDS: ZESTRIL TAB 40 MG PO SCH (08:08)
[2020-06-12] MEDS: PROCARDIA XL 24-hr PO SCH (08:08)
[2020-06-12] MEDS: PRECEDEX 400 MCG/100 ML PREMIX 400 MCG/100 ML INFUS..BTL IV PRN (09:15)
[2020-06-12 09:57] LABS: ABG BASE EXCESS 4.2 mmol/L (-2.0-2.0); ABG HCO3 27.3 mmol/L (22-26)
[2020-06-12] MEDS: NORCO 7.5/325 MG TAB PO PRN ×2 (12:36→21:41)
[2020-06-12] MEDS: K-DUR TAB 20 MEQ PO PRN (12:37)
[2020-06-12] MEDS: FLOMAX PO SCH (21:39)
[2020-06-12] MEDS: LIPITOR TAB 40 MG PO SCH (21:40)
[2020-06-12] MEDS: REQUIP PO SCH (21:40)
[2020-06-12] MEDS: RESTORIL CAP 15 MG PO PRN (21:42)
[2020-06-13] MEDS: DILAUDID INJ IVP PRN ×4 (00:21→22:00)
[2020-06-13] MEDS: DUONEB 0.5 MG/3 MG (3 mL) NEB SCH ×6 (01:09→21:20)
[2020-06-13] MEDS: NORCO 7.5/325 MG TAB PO PRN ×3 (02:03→19:30)
[2020-06-13 05:32] LABS: BASOPHILS % (AUTO) 0.1 % (0.2-1.0); HEMATOCRIT 28.9 % (42.0-54.0); HEMOGLOBIN 9.2 g/dL (13.5-18.0); LYMPHOCYTES # (AUTO) 0.4 X10^3/uL (1.3-2.9); MEAN CORPUSCULAR HEMOGLOBIN 23.8 pg (27.0-34.0); MEAN CORPUSCULAR VOLUME 74.4 fL (80.0-100.0); MEAN PLATELET VOLUME 8.7 fL (7.4-11.0); MONOCYTES # (AUTO) 0.7 x10^3/uL (0.3-0.8); MONOCYTES % (AUTO) 4.5 % (0.0-13.0); NEUTROPHILS # (AUTO) 13.4 x10^3/uL (2.2-4.8); NEUTROPHILS % (AUTO) 92.4 % (42.0-75.0); PLATELET COUNT 438 X10^3/uL (150.0-450.0); RED BLOOD COUNT 3.88 X10^6/uL (4.7-6.0); RED CELL DISTRIBUTION WIDTH 21.8 % (11.6-16.5); WHITE BLOOD COUNT 14.5 X10^3/uL (3.6-10.0)
[2020-06-13 05:34] LABS: ALANINE AMINOTRANSFERASE 14 Units/L (12-78); ALBUMIN 2.4 g/dL (3.4-5.0); ALKALINE PHOSPHATASE 81 Units/L (46-116); ASPARTATE AMINO TRANSFERASE 15 Units/L (15-37); BLOOD UREA NITROGEN 16 mg/dL (7-18); CARBON DIOXIDE 29.6 mmol/L (21-32); CHLORIDE 105 mmol/L (98-107); COR CA(FOR HYPOALB) 9.3 mg/dL (8.5-10.1); COR NA(FOR HYPERGLY) 145 mmol/L (136-145); CREATININE 0.77 mg/dL (0.70-1.30); SODIUM 142 mmol/L (136-145); TOTAL PROTEIN 6.1 g/dL (6.4-8.2); eGFR NON BLACK RACES > 60 (>60)
[2020-06-13] MEDS: ZOSYN VIAL 3.375 GRAMS 3.375 G in NS 100 ML IV + SPIKE MINIBAG* 100 ML IV SCH (05:46)
[2020-06-13] MEDS: SOLU-Medrol 125 MG VIAL IVP SCH ×3 (05:46→21:34)
[2020-06-13 06:01] LABS: ANISOCYTOSIS 1+; HYPOCHROMASIA 1+; PLATELET MORPHOLOGY COMMENT NORMAL (NORMAL)
--- NOTE | 2020-06-13 06:29 | RAD ---
HISTORYPneumoniaSTUDYAP cywpsLSQTKYQYFY28/31/2020FINDINGSStable cardiomegaly. No change in position of right IJ line terminating near the cavoatrial junction. Persistent bilateral infiltrates, right greater than left. There is no new consolidation, developing pneumothorax or pleural fluid.IMPRESSIONNo change since 1 day earlier.Electronically signed by: MAXX CHAVEZ (Jun 13, 2020 06:27:53)
[2020-06-13] MEDS: PEPCID TAB 20 MG PO SCH ×2 (08:26→20:30)
[2020-06-13] MEDS: COLACE CAP 100 MG PO SCH ×2 (08:26→20:32)
[2020-06-13] MEDS: ZESTRIL TAB 40 MG PO SCH (08:27)
[2020-06-13] MEDS: PLAVIX PO SCH (08:27)
[2020-06-13] MEDS: PROCARDIA XL 24-hr PO SCH (08:28)
[2020-06-13] MEDS: COREG TAB 25 MG PO SCH ×2 (08:29→20:30)
[2020-06-13] MEDS: RANEXA PO SCH ×2 (08:29→20:30)
[2020-06-13] MEDS: LOVENOX INJ 40 MG SYR SC SCH (08:29)
[2020-06-13] MEDS: D5W 1000 ML IV 1,000 ML with POTASSIUM CHLORIDE INJ 20 MEQ VIAL 20 MEQ IV SCH ×4 (08:30→22:34)
[2020-06-13] MEDS: ZITHROMAX INJ 500 MG VIAL 500 MG in NS 250 ML IV 250 ML IV SCH (08:30)
[2020-06-13] MEDS: K-DUR TAB 20 MEQ PO PRN ×3 (09:05→20:30)
[2020-06-13] MEDS: BENADRYL INJ 50 MG VIAL IVP PRN (11:32)
[2020-06-13] MEDS: HALDOL INJ IVP PRN ×2 (11:33→15:23)
[2020-06-13] MEDS ORDERED: SOLU-Medrol 40 MG VIAL ONE (13:05)
[2020-06-13] MEDS ORDERED: ZANAFLEX ONE (13:49)
[2020-06-13] MEDS: ZANAFLEX PO PRN ×2 (13:50→22:51)
[2020-06-13] MEDS: RESTORIL CAP 15 MG PO PRN (20:00)
[2020-06-13] MEDS: LIPITOR TAB 40 MG PO SCH (20:30)
[2020-06-13] MEDS: REQUIP PO SCH (20:30)
[2020-06-13] MEDS: FLOMAX PO SCH (20:30)
[2020-06-13 22:51] LABS: BILIRUBIN,URINE NEGATIVE (NEGATIVE); BLOOD/HEMOGLOBIN,URINE 4+ (NEGATIVE); GLUCOSE, URINE NEGATIVE (NEGATIVE); KETONES,URINE NEGATIVE (NEGATIVE); LEUKOCYTE ESTERASE ,URINE 1+ (NEGATIVE); NITRITES,URINE NEGATIVE (NEGATIVE); PROTEIN,URINE NEGATIVE (NEGATIVE); UROBILINOGEN,URINE 1+ (NORMAL)
[2020-06-13 22:59] LABS: AMORPHOUS SEDIMENT,UR TRACE /HPF (NEGATIVE); APPEARANCE,URINE SLIGHTLY HAZY (CLEAR); BACTERIA,URINE TRACE /HPF (NEGATIVE); COLOR,URINE YELLOW (YELLOW); MUCUS,URINE FEW /HPF (NEGATIVE); SQUAMOUS EPITHELIAL CELL,UR RARE /HPF (NEGATIVE); YEAST,URINE FEW /HPF (NEGATIVE)
[2020-06-14] MEDS: DUONEB 0.5 MG/3 MG (3 mL) NEB SCH ×6 (01:35→21:00)
[2020-06-14 05:07] LABS: BASOPHILS % (AUTO) 0.1 % (0.2-1.0); LYMPHOCYTES # (AUTO) 0.4 X10^3/uL (1.3-2.9); LYMPHOCYTES % (AUTO) 3.3 % (21.0-51.0); MEAN PLATELET VOLUME 8.5 fL (7.4-11.0); MONOCYTES # (AUTO) 0.7 x10^3/uL (0.3-0.8); MONOCYTES % (AUTO) 4.9 % (0.0-13.0); NEUTROPHILS # (AUTO) 12.2 x10^3/uL (2.2-4.8); NEUTROPHILS % (AUTO) 91.7 % (42.0-75.0); PLATELET COUNT 379 X10^3/uL (150.0-450.0); RED BLOOD COUNT 3.33 X10^6/uL (4.7-6.0); RED CELL DISTRIBUTION WIDTH 21.4 % (11.6-16.5); WHITE BLOOD COUNT 13.3 X10^3/uL (3.6-10.0)
[2020-06-14] MEDS: SOLU-Medrol 125 MG VIAL IVP SCH ×3 (05:10→21:15)
[2020-06-14] MEDS: DILAUDID INJ IVP PRN ×3 (05:11→19:11)
[2020-06-14 05:22] LABS: ALANINE AMINOTRANSFERASE 14 Units/L (12-78); ALBUMIN 2.1 g/dL (3.4-5.0); ALKALINE PHOSPHATASE 63 Units/L (46-116); ASPARTATE AMINO TRANSFERASE 11 Units/L (15-37); BLOOD UREA NITROGEN 16 mg/dL (7-18); CARBON DIOXIDE 30.2 mmol/L (21-32); CHLORIDE 105 mmol/L (98-107); COR CA(FOR HYPOALB) 9.5 mg/dL (8.5-10.1); COR NA(FOR HYPERGLY) 143 mmol/L (136-145); CREATININE 0.68 mg/dL (0.70-1.30); SODIUM 141 mmol/L (136-145); TOTAL PROTEIN 5.3 g/dL (6.4-8.2); eGFR NON BLACK RACES > 60 (>60)
[2020-06-14 05:42] LABS: ANISOCYTOSIS 1+; HYPOCHROMASIA SLIGHT; MICROCYTOSIS SLIGHT; PLATELET MORPHOLOGY COMMENT NORMAL (NORMAL)
--- NOTE | 2020-06-14 05:55 | RAD ---
HISTORYFollow-up pneumoniaSTUDYChest AP wrurgjulUBUFULULSJ89/01/2020FINDINGSPatient is status post median sternotomy and CABG. There is a rig ht IJ line in good position. The heart remains enlarged. Bilateral infiltrates right greater than lef t are present and unchanged. No pleural effusions are identified. Bony thorax is unremarkable.IMPRESS IONNo significant change bilateral infiltrates right greater than leftNo change cardiomegaly without definite congestive heart failureElectronically signed by: ARTEMIO GARCIA (Jun 14, 2020 05:53:50)
[2020-06-14] MEDS: HALDOL INJ IVP PRN ×3 (06:05→16:16)
[2020-06-14] MEDS: NORCO 7.5/325 MG TAB PO PRN ×3 (06:05→20:01)
[2020-06-14 06:17] LABS: ABG ALLEN TEST POS; ABG HCO3 30.2 mmol/L (22-26)
--- NOTE | 2020-06-14 06:47 | RAD ---
HISTORYABD PQNQQYGGJHSGJMHQPEVXKS40/29/2020TECHNIQUEAbdomen KUB 2 imagesFINDINGSGas-filled dilated colon appears similar to prior study. Postsurgical change again noted. No definite pneumatosis, free air or portal venous gas. Right worse than left base airspace disease is present.IMPRESSIONSimilar appearance gas filled dilated colon compared to prior study. This is suspicious for ileus.Electronically signed by: Rodrigo Acuña (Jun 14, 2020 06:45:04)
[2020-06-14] MEDS: ZANAFLEX PO PRN ×2 (07:10→14:47)
[2020-06-14] MEDS: BENADRYL INJ 50 MG VIAL IVP PRN ×3 (07:11→22:22)
[2020-06-14] MEDS: COLACE CAP 100 MG PO SCH ×2 (08:16→20:00)
[2020-06-14] MEDS: PROCARDIA XL 24-hr PO SCH (08:17)
[2020-06-14] MEDS: ZESTRIL TAB 40 MG PO SCH (08:17)
[2020-06-14] MEDS: RANEXA PO SCH ×2 (08:17→20:00)
[2020-06-14] MEDS: COREG TAB 25 MG PO SCH ×2 (08:18→20:00)
[2020-06-14] MEDS: PLAVIX PO SCH (08:18)
[2020-06-14] MEDS: PEPCID TAB 20 MG PO SCH ×2 (08:18→20:00)
[2020-06-14] MEDS: LOVENOX INJ 40 MG SYR SC SCH (08:19)
[2020-06-14] MEDS: D5W 1000 ML IV 1,000 ML with POTASSIUM CHLORIDE INJ 20 MEQ VIAL 20 MEQ IV SCH ×2 (08:21)
[2020-06-14] MEDS: ZITHROMAX INJ 500 MG VIAL 500 MG in NS 250 ML IV 250 ML IV SCH (08:35)
[2020-06-14] MEDS ORDERED: DULCOLAX SUPPOSITORY 10 MG RECTAL ONE (10:02)
[2020-06-14] MEDS ORDERED: DULCOLAX SUPPOSITORY 10 MG ONE (12:06)
[2020-06-14] MEDS: SOLU-Medrol 40 MG VIAL ONE ×2 (13:05→13:06)
[2020-06-14] MEDS: D5W 1000 ML IV 1,000 ML IV SCH (18:27)
[2020-06-14] MEDS: FLOMAX PO SCH (20:00)
[2020-06-14] MEDS: LIPITOR TAB 40 MG PO SCH (20:00)
[2020-06-14] MEDS: REQUIP PO SCH (20:01)
[2020-06-14] MEDS: RESTORIL CAP 15 MG PO PRN (20:02)
[2020-06-15] MEDS: DUONEB 0.5 MG/3 MG (3 mL) NEB SCH ×6 (01:40→20:41)
[2020-06-15] MEDS: DILAUDID INJ IVP PRN ×3 (02:41→18:40)
[2020-06-15] MEDS: ZANAFLEX PO PRN ×3 (02:42→19:44)
[2020-06-15] MEDS: NORCO 7.5/325 MG TAB PO PRN ×3 (04:29→22:14)
[2020-06-15] MEDS: SOLU-Medrol 125 MG VIAL IVP SCH ×3 (06:19→21:03)
[2020-06-15] MEDS: BENADRYL INJ 50 MG VIAL IVP PRN ×3 (06:19→22:13)
[2020-06-15] MEDS: D5W 1000 ML IV 1,000 ML IV SCH ×3 (08:21→20:20)
[2020-06-15] MEDS: ZITHROMAX INJ 500 MG VIAL 500 MG in NS 250 ML IV 250 ML IV SCH (08:31)
[2020-06-15] MEDS: COREG TAB 25 MG PO SCH ×2 (08:31→20:20)
[2020-06-15] MEDS: RANEXA PO SCH ×2 (08:31→20:23)
[2020-06-15] MEDS: PLAVIX PO SCH (08:32)
[2020-06-15] MEDS: PROCARDIA XL 24-hr PO SCH (08:32)
[2020-06-15] MEDS: ZESTRIL TAB 40 MG PO SCH (08:32)
[2020-06-15] MEDS: LOVENOX INJ 40 MG SYR SC SCH (08:33)
[2020-06-15] MEDS: PEPCID TAB 20 MG PO SCH ×2 (08:33→20:23)
[2020-06-15] MEDS: COLACE CAP 100 MG PO SCH ×2 (08:35→20:11)
[2020-06-15 09:20] LABS: BASOPHILS # (AUTO) 0.1 X10^3/uL (0.0-0.1); BASOPHILS % (AUTO) 0.3 % (0.2-1.0); HEMOGLOBIN 10.3 g/dL (13.5-18.0); LYMPHOCYTES # (AUTO) 0.3 X10^3/uL (1.3-2.9); MEAN CORPUSCULAR HEMOGLOBIN 23.6 pg (27.0-34.0); MEAN CORPUSCULAR HGB CONC 31.4 g/dL (33.0-35.0); MEAN CORPUSCULAR VOLUME 75.1 fL (80.0-100.0); MEAN PLATELET VOLUME 8.1 fL (7.4-11.0); MONOCYTES # (AUTO) 0.4 x10^3/uL (0.3-0.8); MONOCYTES % (AUTO) 2.4 % (0.0-13.0); NEUTROPHILS # (AUTO) 15.9 x10^3/uL (2.2-4.8); NEUTROPHILS % (AUTO) 95.3 % (42.0-75.0); PLATELET COUNT 464 X10^3/uL (150.0-450.0); RED BLOOD COUNT 4.39 X10^6/uL (4.7-6.0); RED CELL DISTRIBUTION WIDTH 22.2 % (11.6-16.5); WHITE BLOOD COUNT 16.7 X10^3/uL (3.6-10.0)
[2020-06-15 09:36] LABS: ALANINE AMINOTRANSFERASE 16 Units/L (12-78); ALBUMIN 2.7 g/dL (3.4-5.0); ALKALINE PHOSPHATASE 87 Units/L (46-116); ASPARTATE AMINO TRANSFERASE 13 Units/L (15-37); BLOOD UREA NITROGEN 14 mg/dL (7-18); CALCIUM 8.4 mg/dL (8.5-10.1); CARBON DIOXIDE 26.1 mmol/L (21-32); CHLORIDE 99 mmol/L (98-107); COR CA(FOR HYPOALB) 9.4 mg/dL (8.5-10.1); COR NA(FOR HYPERGLY) 141 mmol/L (136-145); CREATININE 0.72 mg/dL (0.70-1.30); SODIUM 137 mmol/L (136-145); TOTAL PROTEIN 6.5 g/dL (6.4-8.2); eGFR NON BLACK RACES > 60 (>60)
[2020-06-15] MEDS: HALDOL INJ IVP PRN ×3 (09:37→18:40)
[2020-06-15 09:52] LABS: ANISOCYTOSIS 1+; HYPOCHROMASIA 1+; PLATELET MORPHOLOGY COMMENT NORMAL (NORMAL)
--- NOTE | 2020-06-15 10:17 | RAD ---
HISTORYFollow-up pneumoniaSTUDYChest AP lkrsmixqFCRAMVGMUQ36/02/2020FINDINGSPatient is status post median sternotomy and CABG. There is a rig ht IJ line with its tip at the cavoatrial junction. The heart remains mildly enlarged. Bilateral infi ltrates are again identified right greater than left unchanged in degree or distribution from the luly or examination. No pleural effusions are identified. Bony thorax is unremarkable.IMPRESSIONNo change cardiomegaly without congestive heart failureNo change bilateral infiltrates right greater than leftE lectronically signed by: ARTEMIO GARCIA (Jun 15, 2020 10:15:08)
[2020-06-15] MEDS: K-DUR TAB 20 MEQ PO PRN (10:57)
[2020-06-15] MEDS ORDERED: SOLU-Medrol 40 MG VIAL ONE (13:24)
[2020-06-15 13:56] LABS: ABG ALLEN TEST POS; ABG BASE EXCESS 4.2 mmol/L (-2.0-2.0); ABG HCO3 27.3 mmol/L (22-26)
--- NOTE | 2020-06-15 18:02 | PCM.PROG ---
Progress Note - Progress Note for Day of Date of Exam: 06/14/20 - Subjective Subjective: Mr. Engle is a 65-year-old white male being treated for COVID-19 pneumonia with hypoxia. The patient had really poor p.o. intake the middle and end of last week. He has become more awake and alert. The patient is cooperative with nursing staff Kush, yesterday, and today. He has had p rogressive p.o. intake. The patient continues to be hypokalemic. He is on D5W with 20 mEq of potassium chloride to his IV fluids. The patient is also receiving potassium replacement protocol. He denies any cramps at this time. He is complaining of continued lower back and hip pain which is chronic. The patient denies any chest pain. He continues to complain of low back pain despite being treated with chronic pain management and IV Dilaudid and also resumed his home Tizanidine. The patient was upset this morning. He is a little more depressed. The patient is asking to go home. We assured the patient that he was improving in his overall condition - Past Medical Family Social History Past Med/Fam/Surg Hx: No changes since H&P Allergies: Allergies iodine Allergy (Verified 06/02/20 15:37) - Review of Systems ROS: No change since H&P - Vital Signs and I&O's Vital Signs: Temperature 98.0 F Pulse Rate [Left Radial] 81 Pulse Rate 85 Respiratory Rate 20 Blood Pressure [Left Arm] 177/83 Blood Pressure 155/75 O2 Sat by Pulse Oximetry 86 Intake and Output: Intake & Output 06/13/20 06/14/20 06/15/20 06/16/20 11:59 11:59 11:59 11:59 Intake Total 2505 / 2505 3864 / 3864 1506 / 1506 Output Total 3200 / 3200 3850 / 3850 1525 / 1525 Balance -695 / -695 - - Physical Exam Oriented: Normal, Other (anxious and restless ) Eyes: Normal Ear: Normal Nose: Normal Throat: Normal Respiratory: Diminished, Wheezes Cardiovascular: Murmur : Normal Auscultation: Bowel Sounds: Decreased Tenderness: Epigastric (mild diffuse tenderness , soft abdomen.) Skin: Other (Dusky appearance) Musculoskeletal: Back:Lumbar (tender with palpation) Psychiatric: Normal Mood Description: Calm Affect: Flat Speech Pattern: Appropriate - Laboratory and Diagnostics Result Diagrams: 06/15/20 09:08 06/15/20 09:08 Labs: 06/03/20 09:07 Blood Blood Culture - Final 06/03/20 08:50 Blood Blood Culture - Final 06/02/20 17:10 Blood Blood Culture - Final 06/02/20 16:09 Blood Blood Culture - Final 06/03/20 10:30 Urine,Clean Catch Urine Culture - Final Laboratory WBC 16.7 X10^3/uL (3.6-10.0) H 06/15/20 09:08 RBC 4.39 X10^6/uL (4.7-6.0) L 06/15/20 09:08 Hgb 10.3 g/dL (13.5-18.0) L D 06/15/20 09:08 Hct 33.0 % (42.0-54.0) L 06/15/20 09:08 MCV 75.1 fL (80.0-100.0) L 06/15/20 09:08 MCH 23.6 pg (27.0-34.0) L 06/15/20 09:08 MCHC 31.4 g/dL (33.0-35.0) L 06/15/20 09:08 RDW 22.2 % (11.6-16.5) H 06/15/20 09:08 Plt Count 464 X10^3/uL (150.0-450.0) H 06/15/20 09:08 Plt Count Comment Increased (ADEQUATE) 06/15/20 09:08 MPV 8.1 fL (7.4-11.0) 06/15/20 09:08 Neut % (Auto) 95.3 % (42.0-75.0) H 06/15/20 09:08 Lymph % (Auto) 2.0 % (21.0-51.0) L 06/15/20 09:08 [place] % (Auto) 2.4 % (0.0-13.0) 06/15/20 09:08 Eos % (Auto) 0.0 % (0.9-2.9) L 06/15/20 09:08 Baso % (Auto) 0.3 % (0.2-1.0) 06/15/20 09:08 Neut # (Auto) 15.9 x10^3/uL (2.2-4.8) H 06/15/20 09:08 Lymph # (Auto) 0.3 X10^3/uL (1.3-2.9) L 06/15/20 09:08 Carolina # (Auto) 0.4 x10^3/uL (0.3-0.8) 06/15/20 09:08 Eos # (Auto) 0.0 x10^3/uL (0.0-0.2) 06/15/20 09:08 Baso # (Auto) 0.1 X10^3/uL (0.0-0.1) 06/15/20 09:08 Absolute Nucleated RBC 0.2 /100WBC 06/15/20 09:08 Total Counted 100 06/15/20 09:08 Neutrophils % (Manual) 89 % (39-76) H 06/15/20 09:08 Band Neutrophils % Not Reportable 06/15/20 09:08 Lymphocytes % (Manual) 9 % (13-43) L 06/15/20 09:08 Monocytes % (Manual) 2 % (4-9) L 06/15/20 09:08 Plt Morphology Comment Normal (NORMAL) 06/15/20 09:08 RBC Morphology Abnormal (NORMAL) 06/15/20 09:08 Hypochromasia 1+ A 06/15/20 09:08 Anisocytosis 1+ A 06/15/20 09:08 Microcytosis Slight A 06/14/20 04:35 Tear Drop Cells Present 06/10/20 05:02 Ovalocytes Present 06/10/20 05:02 ESR 38 MM/HOUR (0-15) H 06/03/20 08:50 D-Dimer 1.02 ug/ml (0.0-0.57) H* 06/08/20 13:25 Sample Site Lr 06/15/20 13:50 ABG pH 7.500 (7.35-7.45) H 06/15/20 13:50 ABG pCO2 35.0 mmHg (35.0-45.0) 06/15/20 13:50 ABG pO2 68.0 mmHg (80.0-100.0) L 06/15/20 13:50 ABG HCO3 27.3 mmol/L (22-26) H 06/15/20 13:50 ABG O2 Saturation 95.0 % (90-100) 06/15/20 13:50 ABG Base Excess 4.2 mmol/L (-2.0-2.0) H 06/15/20 13:50 Jason Test Pos 06/15/20 13:50 A-a Gradient 145.0 mmHg 06/15/20 13:50 FiO2 36.0 06/15/20 13:50 Blood Gas Comments Pt [email or web address] 06/15/20 13:50 Sodium 137 mmol/L (136-145) 06/15/20 09:08 Corrected Sodium 141 mmol/L (136-145) 06/15/20 09:08 Potassium 3.6 mmol/L (3.5-5.1) 06/15/20 09:08 Chloride 99 mmol/L (98-107) 06/15/20 09:08 Carbon Dioxide 26.1 mmol/L (21-32) 06/15/20 09:08 BUN 14 mg/dL (7-18) 06/15/20 09:08 Creatinine 0.72 mg/dL (0.70-1.30) 06/15/20 09:08 Est GFR (MDRD) Af Amer > 60 (>60) 06/15/20 09:08 Est GFR (MDRD) Non-Af > 60 (>60) 06/15/20 09:08 Glucose 273 mg/dL (65-99) H 06/15/20 09:08 Lactic Acid 0.9 mmol/L (0.4-2.0) 06/03/20 08:50 Calcium 8.4 mg/dL (8.5-10.1) L 06/15/20 09:08 Corrected Calcium 9.4 mg/dL (8.5-10.1) 06/15/20 09:08 Magnesium 2.0 mg/dL (1.7-2.9) 06/13/20 04:45 Ferritin 80 ng/mL (26-388) 06/03/20 08:50 Total Bilirubin 0.40 mg/dL (0.2-1.0) 06/15/20 09:08 AST 13 Units/L (15-37) L 06/15/20 09:08 ALT 16 Units/L (12-78) 06/15/20 09:08 Alkaline Phosphatase 87 Units/L (46-116) 06/15/20 09:08 Creatine Kinase 273 Units/L (39-308) 06/07/20 15:49 CK-MB (CK-2) < 1.0 ng/mL (0-4.0) 06/07/20 15:49 CK/CKMB % Calc 0.4 % (<4) 06/07/20 15:49 Troponin I 0.02 ng/mL (0-1.5) 06/07/20 15:49 C-Reactive Protein 84.40 mg/L (0-3.0) H 06/09/20 16:04 Total Protein 6.5 g/dL (6.4-8.2) 06/15/20 09:08 Albumin 2.7 g/dL (3.4-5.0) L 06/15/20 09:08 Globulin 3.8 g/dL (2.5-4.5) 06/15/20 09:08 Albumin/Globulin Ratio 0.7 Ratio (1.1-2.1) L 06/15/20 09:08 Specimen Type Catherized urine 06/13/20 22:00 Urine Color Yellow (YELLOW) 06/13/20 22:00 Urine Appearance Slightly hazy (CLEAR) 06/13/20 22:00 Urine pH 8.0 (5.0 - 8.0) 06/13/20 22:00 Ur Specific Edison 1.010 (1.000-1.030) 06/13/20 22:00 Urine Protein Negative (NEGATIVE) 06/13/20 22:00 Urine Glucose (UA) Negative (NEGATIVE) 06/13/20 22:00 Urine Ketones Negative (NEGATIVE) 06/13/20 22:00 Urine Occult Blood 4+ (NEGATIVE) 06/13/20 22:00 Urine Nitrite Negative (NEGATIVE) 06/13/20 22:00 Urine Bilirubin Negative (NEGATIVE) 06/13/20 22:00 Urine Urobilinogen 1+ (NORMAL) 06/13/20 22:00 Ur Leukocyte Esterase 1+ (NEGATIVE) 06/13/20 22:00 Urine RBC 5-10 /HPF (0-3) A 06/13/20 22:00 Urine WBC 3-5 /HPF (0-5) 06/13/20 22:00 Ur Squamous Epith Cells Rare /HPF (NEGATIVE) 06/13/20 22:00 Amorphous Sediment Trace /HPF (NEGATIVE) 06/13/20 22:00 Urine Bacteria Trace /HPF (NEGATIVE) 06/13/20 22:00 Urine Mucus Few /HPF (NEGATIVE) 06/13/20 22:00 Urine Yeast Few /HPF (NEGATIVE) 06/13/20 22:00 Ur Culture Indicated? No/not indicated 06/13/20 22:00 SARS-CoV-2 (PCR) Positive (NEGATIVE) A 06/03/20 09:20 Blood Type O POSITIVE 06/08/20 13:55 - Plan (1) Pneumonia due to COVID-19 virus Status: Acute Plan: IV ATBX, SUPPLEMENTAL O2. AM LABS, CXR. DUO NEBS, PT/RT/OT. BP CONTROL, PAIN CONTROL, CARDIAC MONITORING
[2020-06-15] MEDS: RESTORIL CAP 15 MG PO PRN (19:43)
[2020-06-15] MEDS: LIPITOR TAB 40 MG PO SCH (20:21)
[2020-06-15] MEDS: FLOMAX PO SCH (20:21)
[2020-06-15] MEDS: REQUIP PO SCH (20:23)
[2020-06-16] MEDS: DUONEB 0.5 MG/3 MG (3 mL) NEB SCH ×3 (00:20→09:30)
[2020-06-16] MEDS: DILAUDID INJ IVP PRN ×2 (00:30→06:05)
[2020-06-16] MEDS: HALDOL INJ IVP PRN (00:31)
[2020-06-16] MEDS: ZANAFLEX PO PRN (04:39)
[2020-06-16] MEDS: NORCO 7.5/325 MG TAB PO PRN ×2 (04:39→12:00)
[2020-06-16 04:55] LABS: BASOPHILS % (AUTO) 0.1 % (0.2-1.0); HEMOGLOBIN 8.9 g/dL (13.5-18.0); LYMPHOCYTES # (AUTO) 0.4 X10^3/uL (1.3-2.9); LYMPHOCYTES % (AUTO) 2.1 % (21.0-51.0); MEAN CORPUSCULAR HEMOGLOBIN 24.2 pg (27.0-34.0); MEAN CORPUSCULAR HGB CONC 31.7 g/dL (33.0-35.0); MEAN CORPUSCULAR VOLUME 76.3 fL (80.0-100.0); MEAN PLATELET VOLUME 8.4 fL (7.4-11.0); MONOCYTES # (AUTO) 1.2 x10^3/uL (0.3-0.8); MONOCYTES % (AUTO) 5.7 % (0.0-13.0); NEUTROPHILS # (AUTO) 18.9 x10^3/uL (2.2-4.8); NEUTROPHILS % (AUTO) 92.1 % (42.0-75.0); PLATELET COUNT 424 X10^3/uL (150.0-450.0); RED BLOOD COUNT 3.67 X10^6/uL (4.7-6.0); RED CELL DISTRIBUTION WIDTH 21.7 % (11.6-16.5); WHITE BLOOD COUNT 20.5 X10^3/uL (3.6-10.0)
[2020-06-16] MEDS: SOLU-Medrol 125 MG VIAL IVP SCH (05:04)
[2020-06-16 05:11] LABS: ALANINE AMINOTRANSFERASE 15 Units/L (12-78); ALBUMIN 2.4 g/dL (3.4-5.0); ALKALINE PHOSPHATASE 69 Units/L (46-116); ASPARTATE AMINO TRANSFERASE 13 Units/L (15-37); BLOOD UREA NITROGEN 15 mg/dL (7-18); CARBON DIOXIDE 28.1 mmol/L (21-32); CHLORIDE 102 mmol/L (98-107); COR CA(FOR HYPOALB) 9.3 mg/dL (8.5-10.1); COR NA(FOR HYPERGLY) 143 mmol/L (136-145); CREATININE 0.74 mg/dL (0.70-1.30); SODIUM 140 mmol/L (136-145); TOTAL PROTEIN 5.8 g/dL (6.4-8.2); eGFR NON BLACK RACES > 60 (>60)
[2020-06-16] MEDS: D5W 1000 ML IV 1,000 ML IV SCH ×2 (05:24→09:06)
[2020-06-16] MEDS: K-DUR TAB 20 MEQ PO PRN (05:40)
[2020-06-16 05:47] LABS: ANISOCYTOSIS 1+; HYPOCHROMASIA SLIGHT; PLATELET MORPHOLOGY COMMENT NORMAL (NORMAL)
[2020-06-16] MEDS: BENADRYL INJ 50 MG VIAL IVP PRN (06:05)
[2020-06-16] MEDS: PROCARDIA XL 24-hr PO SCH (09:03)
[2020-06-16] MEDS: RANEXA PO SCH (09:03)
[2020-06-16] MEDS: COREG TAB 25 MG PO SCH (09:04)
[2020-06-16] MEDS: ZESTRIL TAB 40 MG PO SCH (09:04)
[2020-06-16] MEDS: PLAVIX PO SCH (09:04)
[2020-06-16] MEDS: LOVENOX INJ 40 MG SYR SC SCH (09:05)
[2020-06-16] MEDS: ZITHROMAX INJ 500 MG VIAL 500 MG in NS 250 ML IV 250 ML IV SCH (09:05)
[2020-06-16] MEDS: COLACE CAP 100 MG PO SCH (09:05)
[2020-06-16] MEDS: PEPCID TAB 20 MG PO SCH (09:05)
[2020-06-16 12:04] VITALS: BP 153/71
== END 2020-06-16 13:40 | disposition home health service (06) | DRG 388 ==
LOC: MED/SURG 15:04 → ICU 06-03 10:42
PROVIDERS: ADMIT Internal Medicine; ATTEND Internal Medicine
DX: I10 Essential (primary) hypertension; E87.0 Hyperosmolality and hypernatremia; M51.9 Unspecified thoracic, thoracolumbar and lumbosacral intervertebral disc disorder; M25.552 Pain in left hip; S00.219A Abrasion of unspecified eyelid and periocular area, initial encounter; R26.81 Unsteadiness on feet; E87.6 Hypokalemia; E11.9 Type 2 diabetes mellitus without complications; R10.9 Unspecified abdominal pain; Y92.230 Patient room in hospital as the place of occurrence of the external cause; I25.10 Atherosclerotic heart disease of native coronary artery without angina pectoris; U07.1 COVID-19; I87.2 Venous insufficiency (chronic) (peripheral); J12.89 Other viral pneumonia; R19.7 Diarrhea, unspecified; Z95.1 Presence of aortocoronary bypass graft; F17.200 Nicotine dependence, unspecified, uncomplicated; R40.4 Transient alteration of awareness; W06.XXXA Fall from bed, initial encounter; Z78.1 Physical restraint status; E86.0 Dehydration; K56.7 Ileus, unspecified; Z98.0 Intestinal bypass and anastomosis status; S23.41XA Sprain of ribs, initial encounter; R09.02 Hypoxemia